=== PATIENT | female | born 1960 | race Caucasian/White ===

== ENCOUNTER → 2018-04-28 08:32 | Outpatient (CLI) | payer OTHER, SELFPAY ==
[2018-04-28 09:26] LABS: Alanine Aminotransferase 25 IU/L (9-52); Albumin Globulin Ratio 1.4 (1.0-2.8); Alkaline Phosphatase 49 U/L (38-126); Aspartate Aminotransferase 25 IU/L (14-36); BUN Creatinine Ratio 22.2 (6-22); Bilirubin Total 0.6 mg/dL (0.2-1.3); Blood Urea Nitrogen 20 mg/dL (7-17); Calcium 9.5 mg/dL (8.4-10.2); Carbon Dioxide 27 mmol/L (22-32); Chloride 105 mmol/L (98-107); Cholesterol 152 mg/dL (140-199); Estimated Glomerular Filt Rate > 60.0 mL/min (>60); Globulin 2.8 g/dL (1.7-4.1); Glucose 96 mg/dL (70-100); HDL Cholesterol 62 mg/dL (40-60); HEMOLYSIS < 15 (0-50); LDL Cholesterol Calculated 72 mg/dL (<100); Potassium 4.2 mmol/L (3.4-5.1); Sodium 142 mmol/L (137-145); Total Protein 6.8 g/dL (6.3-8.2); Triglycerides 91 mg/dL (35-150)
[2018-04-28 09:41] LABS: Add Manual Diff / Slide Review NO; Basophils Percent Auto 0.8 % (0-2); Eosinophils Percent Auto 3.7 % (2-4); Hematocrit 39.7 % (36-46); Hemoglobin 13.2 g/dL (12.0-16.0); Mean Corpuscular HGB Conc 33.1 % (30-36); Mean Corpuscular Hemoglobin 26.7 PG (26-34); Mean Corpuscular Volume 80.7 fL (80-100); Monocytes Percent Auto 9.3 % (3-14); Neutrophils Absolute Auto 3200 /uL (3000-5900); Neutrophils Percent Auto 59.2 % (50-75); Red Blood Cell Count 4.93 X10^6/uL (4.0-5.2); Red Cell Distribution Width 13.6 % (11.6-14.8); White Blood Cell Count 5.4 X10^3/uL (4.5-11.0)
[2018-04-28 09:57] LABS: TSH w/ Reflex to FT4 2.84 uIU/mL (0.47-4.68)
[2018-04-28 10:13] LABS: Platelet Count 162 X10^3/uL (150-400)
== END ==
PROVIDERS: Family Provider Family Medicine; PCP Family Medicine; Visit Provider Family Medicine
DX: Z00.00 Encounter for general adult medical examination without abnormal findings (principal); Z79.890 Hormone replacement therapy
CPT/HCPCS: 36415; 80053; 80061; 84443; 85025

== ENCOUNTER → 2018-07-06 15:14 | Outpatient (CLI) | payer OTHER, SELFPAY ==
--- NOTE | 2018-07-06 | DI.MG.S_ITS ---
BILATERAL DIGITAL SCREENING MAMMOGRAM 3D/2D WITH CAD: 07/06/2018 CLINICAL: Routine screening. Comparison is made to exams dated: 05/05/2017 mammogram, 02/19/2016 mammogram, and 02/02/2015 mammogram - [facility]. The tissue of both breasts is extremely dense, which lowers the sensitivity of mammography. Current study was also evaluated with a Computer Aided Detection (CAD) system. No significant masses, calcifications, or other findings are seen in either breast. There has been no significant interval change. IMPRESSION: NEGATIVE There is no mammographic evidence of malignancy. A 1 year screening mammogram is recommended. This exam was interpreted at Station ID: [id number]. NOTE: For mammograms, a report in lay terms will be sent to the patient. Approximately 15% of breast malignancies will not be visualized mammographically. In the management of a palpable breast mass, a negative mammogram must not discourage biopsy of a clinically suspicious lesion. Electronically Signed By: Vicky will/loy:07/06/2018 15:48:02 letter sent: Normal Exam ACR BI-RADS Category 1: Negative [id number]
[2018-07-06 17:32] LABS: Hep C Virus Ab w/Reflex Quant NEGATIVE s/c (NEGATIVE)
== END ==
PROVIDERS: PCP Family Medicine; Visit Provider Family Medicine
DX: Z12.31 Encounter for screening mammogram for malignant neoplasm of breast (principal); Z11.59 Encounter for screening for other viral diseases
CPT/HCPCS: 36415; 77063; 77067; 86803

== ENCOUNTER → 2019-07-05 14:37 | Outpatient (CLI) | payer OTHER, SELFPAY ==
--- NOTE | 2019-07-05 14:38 | DI.US.S_ITS ---
PROCEDURE: US RENAL COMPLETE INDICATIONS: MICROHEMATURIA TECHNIQUE: Real-time scanning was performed of the kidneys and bladder, with image documentation. COMPARISON: [facility] , US ABDOMEN, 12/11/2000, 14:36. [facility] , CT ABDOMEN/PELVIS WITH CONTRAST, 12/11/2000, 11:08. FINDINGS: Kidneys: Kidneys are normal in size. Right kidney measures 10.7 cm long; left kidney measures 10.1 cm long. Right renal cortical thickness is 1.0 cm; left renal cortical thickness is 1.0 cm. Renal cortical echotexture is normal. No hydronephrosis or nephrolithiasis. No suspicious solid mass lesions. Bladder: Pre-void bladder volume is 75 mL. Post-void residual is 0 mL. Pre-void images demonstrate no intraluminal masses or stones. On pre-void images, right ureteral jets are noted with color Doppler interrogation. (Of note, ureteral jets may not be detectable in up to 25% of cases due to insufficient differences in specific gravity between ureteral and bladder urine). Miscellaneous: No free pelvic fluid. IMPRESSION: Normal kidneys. Dictated by: Devante HALL Interpreted: Carlo Varner MD on 07/05/2019 at 15:40 Approved by: Carlo Varner M.D. on 07/05/2019 at 16:24
== END ==
PROVIDERS: PCP Family Medicine; Visit Provider Family Medicine
DX: M81.0 Age-related osteoporosis without current pathological fracture (principal); R31.29 Other microscopic hematuria; Z82.62 Family history of osteoporosis; Z78.0 Asymptomatic menopausal state
CPT/HCPCS: 76770; 77080

== ENCOUNTER → 2019-07-08 07:41 | Outpatient (CLI) | payer OTHER, SELFPAY ==
--- NOTE | 2019-07-08 07:42 | DI.MG.S_ITS ---
BILATERAL DIGITAL SCREENING MAMMOGRAM 3D/2D WITH CAD: 07/08/2019 CLINICAL: Routine screening. Comparison is made to exams dated: 07/06/2018 mammogram, 05/05/2017 mammogram, and 02/19/2016 mammogram - [facility]. The tissue of both breasts is extremely dense, which lowers the sensitivity of mammography. Current study was also evaluated with a Computer Aided Detection (CAD) system. No significant masses, calcifications, or other findings are seen in either breast. There has been no significant interval change. IMPRESSION: NEGATIVE There is no mammographic evidence of malignancy. A 1 year screening mammogram is recommended. This exam was interpreted at Station ID: [id number]. NOTE: For mammograms, a report in lay terms will be sent to the patient. Approximately 15% of breast malignancies will not be visualized mammographically. In the management of a palpable breast mass, a negative mammogram must not discourage biopsy of a clinically suspicious lesion. Electronically Signed By: Vicky will/loy:07/09/2019 08:43:15 letter sent: Normal Exam ACR BI-RADS Category 1: Negative [id number]
== END ==
PROVIDERS: PCP Family Medicine; Visit Provider Family Medicine
DX: Z12.31 Encounter for screening mammogram for malignant neoplasm of breast (principal)
CPT/HCPCS: 77063; 77067

== ENCOUNTER 2019-10-17 09:00 | Outpatient (RCR) | payer BC, OTHER, SELFPAY ==
--- NOTE | 2019-06-20 16:00 | PT.OIE ---
Current Diagnoses Low back pain (06/20/19) Other specified disorders of muscle (06/20/19) Pelvic and perineal pain (06/20/19) Past Medical History (Last Reviewed 05/03/18 @ 09:34 by Carolyn Connor LPN) Anxiety (Chronic ~1979) Asthma (Chronic ~1990) Bunion (Chronic ~2015) Cardiac arrhythmia (Chronic ~1992) Chicken pox (Resolved ~1975) Chronic back pain (Chronic ~2005) Chronic narrow angle glaucoma (Chronic) Chronic sinus infection (Chronic ~1989) Depression (Chronic ~1985) Dermoid cyst (Chronic ~1999) Disc herniation (Chronic ~2008) Gastric ulcer (Chronic) Hematuria (Chronic ~1999) Melasma (Chronic ~1989) Mumps (Resolved ~1964) Osteopenia (Chronic ~2011) Osteoporosis (Chronic ~2014) Post traumatic stress disorder (PTSD) (Chronic ~1986) Postmenopausal (Chronic ~2012) Recurrent sinusitis (Chronic ~1982) Rosacea (Chronic ~1999) Scoliosis (Chronic) Seasonal allergies (Chronic ~1964) Shingles (Resolved ~1990) Teratoma (Chronic ~1999) Wasp sting (Chronic) Past Surgical History (Last Reviewed 05/03/18 @ 09:34 by Carolyn Connor LPN) Anesthesia (Resolved) Bowel obstruction (Resolved ~03/2007) Foot pain (Chronic ~2003) History of tonsillectomy (~1990) Status post bilateral salpingo-oophorectomy (BSO) (~10/2000) Status post discectomy (~2006) Status post iridectomy (Resolved ~2015) Status post tubal ligation Visit Care Team Role Provider Type Judah Díaz MD Attending Provider Physician Primary Care Provider Specialty: [facility] Address: [address] [place] [address] Email: [email or web address] Physical Therapy Initial Evaluation PT-OP-A Visit Information Start: 06/20/19 15:22 Freq: Status: Active Protocol: Document 06/20/19 15:22 [facility] (Rec: 06/20/19 15:37 [facility] [id number]) Out-Patient Physical Therapy Visit Information Visit Information Visit Type Initial Evaluation Visit Note 58 year old female with pelvic pain, low back pain, painful intercourse and urinary leakage Visit Start Time 15:15 Visit Stop Time 16:00 Total Visit Minutes 45 Visit Number 1 Evaluation Information Evaluation Date 06/20/19 PT-OP-B Current Condition Start: 06/20/19 15:22 Freq: Status: Active Protocol: Document 06/20/19 15:22 [facility] (Rec: 06/20/19 15:37 [facility] [id number]) Current Condition History of Current Condition Onset Date symptoms began in November 2018 fo Current Complaints urgency and leakage, pelvic pain with intercourse, LBP History of Current Condition Barbara reports she started getting sacral pain after . Did alot of mountain biking and then began having pain with sit ups, down tog, standing on one foot for long. She feels like she isn't quite lined up right. Has to use her arms to push her up when rolling over. Hasn't been able to do her gym activities due to pain . She has had discomfort with intercourse but now it is painful and she often avoids it due to pain. She leaks with strong cough and sneeze and has a strong urgency to void. She has a history of disectomy L4-5 in 2006, ovary removal 2000. She has been on both oral estrogen and vaginal estrogen cream for 4-5 years. She also has a history of TMJ Treatment Goals Patient/Caregiver Goals To reduce pain, improve alignment of the pelvis, decrease incontinence Current Functional Impairments (Reported) Functional Limitations- ADL's pain with rolling over in bed Functional Limitations- Recreation/ pain limiting recreational Hobbies activities such as yoga, hiking, and biking PT-OP-C Subjective Start: 06/20/19 15:22 Freq: Status: Active Protocol: Document 06/20/19 16:00 [facility] (Rec: 06/22/19 10:49 [facility] [id number]) Patient Questionnaires Pelvic Pain and Urgency/Frequency Patient Symptom Scale Pelvic Pain Score 12.5 OP-PT Pain Assessment Pain Assessment Grid Paper Pain Assessment Grid Completed Yes Location left side sacrum Pain Location Details feels as if she is out of alignment Intensity 3 Scale Used Numeric (1 - 10) PT-OP-I Pelvic Floor Start: 06/20/19 15:22 Freq: Status: Active Protocol: Document 06/20/19 16:00 [facility] (Rec: 06/22/19 10:49 [facility] [id number]) Pelvic Floor Assessment Urine Pelvic Floor Surgery No Urinary Symptoms Urge Sensation,Incomplete Emptying Other Urinary Symptoms at times will feel like she needs to void again following urination. Leakage Size Medium Leakage Cause Exercise,Sneeze,Urge Leaks Per Day intermittent Voiding Frequency every 2 hours Nocturia 1-2 times Pelvic Clock Pelvic Clock 6-9 Guarding,Hypertonic Pelvic Clock 9-12 Guarding,Hypertonic Contraction Ability Voluntary Contraction Weak Voluntary Relaxation Weak Manual Muscle Testing Left 2 Manual Muscle Testing Right 2 Manual Muscle Testing Anterior 2 Manual Muscle Testing Posterior 2 Muscle Endurance (Seconds) 4 Comments Pelvic Floor Comments it is very difficult for Barbara to elicit a contraction due to hypertonicity of the lateral steel of her pelvic floor. Spams in the illiococcygeus bilaterally PT-OP-J Posture/Palpation/Skin Start: 06/20/19 15:22 Freq: Status: Active Protocol: Document 06/20/19 16:00 [facility] (Rec: 06/22/19 10:49 [facility] [email or web address]) Palpation Assessment Location left innominant Palpation Location left innominant inflare Palpation Findings Tenderness Palpation Details pain with provocative tests for the SI on the left with AP glide from the ASIS left sacral LUIZ Palpation Location left sacral LUIZ Palpation Findings Tenderness Palpation Details Left sacral LUIZ is shallow and Right sacral LUIZ is deep PT-OP-K Range of Motion Start: 06/22/19 10:49 Freq: Status: Active Protocol: Document 06/20/19 16:00 [facility] (Rec: 06/22/19 10:51 [facility] [email or web address]) Lumbar Spine Range of Motion Lumbar Spine Active Testing Position Standing Flexion 60 ROM Limitations Soft Tissue Tightness,Muscle Tone Comments pain with forward flexion in the left sacrum Hip Goniometric Range of Motion Hip Left Hip ROM WFL No Testing Position Supine Hip ROM Limitations Hip ROM Limitations Pain Comments pain with left hip ER in both standing and supine, pain is reproduced in the left sacral region PT-OP-Q Treatments Start: 06/20/19 15:22 Freq: Status: Active Protocol: Document 06/20/19 17:49 [facility] (Rec: 06/20/19 17:53 [facility] [email or web address]) Therapeutic Exercises Supine Exercises bent knee fall out left Side left Reps/Minutes x 10 reps Comments with cues to not let the right pelvis move happy baby stretch Reps/Minutes 1-2 reps hold 30 sec to 1 min Comments for pelvic floor relaxation supine adductor ball squeeze Supine Exercise Name supine adductor ball squeeze Side bilateral Reps/Minutes 10x 5 seconds Manual Therapy Treatment Manual Techniques 2 Type MET left inflare Body Position Supine 1 Type MET for sacral rotation left Body Position Sidelying Self-Care/Home Management Treatment Education Patient Education Pain Management,Posture Other Education education on sitting posture to decrease pelvic floor tightness PT-OP-T Assessment and Plan Start: 06/20/19 15:22 Freq: Status: Active Protocol: Document 06/20/19 16:00 [facility] (Rec: 06/22/19 10:49 [facility] [email or web address]) Physical Therapy Assessment Rehab Potential Rehabilitation Potential Excellent Evaluation Complexity Number of Personal Factors/Comorbidities 0 Number of Body Systems Impaired 1-2 Clinical Presentation at Evaluation Stable Impairments Impairments Activity Tolerance,Pain,Soft Tissue Mobility,Strength,Tone Goals Three Impairment Decreased strength and endurance of the pelvic floor due to high tone Short Term Goal (STG) Barbara is able to relax her pelvic floor to baseline in order to properly perform a pelvic floor contraction. STG Duration 4 weeks [facility] Goal (LTG) Barbara is able to improve the function of her pelvic floor to reduce symptoms of urinary incontinence and leakage. LTG Duration 8 weeks Two Impairment hypertonicity of the pelvic floor muscles and pain with intercourse Short Term Goal (STG) Barbara is educated on relaxed awareness of the pelvic floor and is given a home stretching and yoga for pelvic pain program STG Duration 4 weeks [facility]iary Goal (LTG) Barbara is able to return to intercourse with overall reduced pain levels LTG Duration 8 weeks One Impairment sacral torsion and sacral pain left Short Term Goal (STG) With manual therapy techniques Barbara no longer has complaints of pain along the sacral LUIZ on the left and she is able to roll in bed without pain STG Duration 4 weeks Staff Pharmacist Goal (LTG) Barbara is able to rotate her left leg into full ER and IR without sacral pain LTG Duration 8 weeks Assessment Summary Assessment Barbara presents to Physical therapy today with signs and symptoms of pelvic floor hypertonicity and sacral torsion creating both pelvic pain with intercourse and LBP. Barbara reports she has always had discomfort with intercourse but her symptoms increased when she began experiencing sacral pain following a week of mountain biking and outdoor activity in November 2018. 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 With internal examination of the pelvic floor she has guarding of the illiococcygeus L >R and difficulty even dena her pelvic floor due to hypertonicity. Treatment today began with manual technique to correct the sacral torsion, she was given stretches for the pelvic floor as well as SI bracing exercises. Treatment will include EMG biofeedback for relaxed awareness of the pelvic floor, yoga positions and stretches specifically for the pelvic floor and bladder retraining for urgency. Physical Therapy Plan Frequency and Duration Frequency of Treatment 1x/Week Duration of Treatment 8 Plan of Care Start Date 06/20/19 Plan of Care End Date 08/15/19 Therapeutic Interventions Therapeutic Interventions Home Exercise Program,Joint Mobilizations,Manual Therapy, Neuromuscular Re-education, Patient/Caregiver Education, Self-Care/Home Management,Soft Tissue Mobilization, Therapeutic Exercises Modalities Biofeedback,Electric Stimulation Next Visit Focus/Plan Next Note Type Treatment Note Next Visit Plan Begin with EMG biofeedback next visit and training on relaxing the pelvic floor with stretches
--- NOTE | 2019-06-22 10:55 | PT.OPPOC ---
Current Diagnoses Low back pain (06/20/19) Other specified disorders of muscle (06/20/19) Pelvic and perineal pain (06/20/19) Visit Care Team Role Provider Type Judah Díaz MD Attending Provider Physician Primary Care Provider Specialty: [facility] Address: [address] [place] [address], [id number] Email: [email or web address] Plan Of Care PT-OP-T Assessment and Plan Start: 06/20/19 15:22 Freq: Status: Active Protocol: Document 06/20/19 16:00 [facility] (Rec: 06/22/19 10:49 [facility] [email or web address]) Physical Therapy Assessment Rehab Potential Rehabilitation Potential Excellent Evaluation Complexity Number of Personal Factors/Comorbidities 0 Number of Body Systems Impaired 1-2 Clinical Presentation at Evaluation Stable Impairments Impairments Activity Tolerance,Pain,Soft Tissue Mobility,Strength,Tone Goals Three Impairment Decreased strength and endurance of the pelvic floor due to high tone Short Term Goal (STG) Barbara is able to relax her pelvic floor to baseline in order to properly perform a pelvic floor contraction. STG Duration 4 weeks [facility] Goal (LTG) Barbara is able to improve the function of her pelvic floor to reduce symptoms of urinary incontinence and leakage. LTG Duration 8 weeks Two Impairment hypertonicity of the pelvic floor muscles and pain with intercourse Short Term Goal (STG) Barbara is educated on relaxed awareness of the pelvic floor and is given a home stretching and yoga for pelvic pain program STG Duration 4 weeks [facility] Goal (LTG) Barbara is able to return to intercourse with overall reduced pain levels LTG Duration 8 weeks One Impairment sacral torsion and sacral pain left Short Term Goal (STG) With manual therapy techniques Barbara no longer has complaints of pain along the sacral LUIZ on the left and she is able to roll in bed without pain STG Duration 4 weeks [employer] Goal (LTG) Barbara is able to rotate her left leg into full ER and IR without sacral pain LTG Duration 8 weeks Assessment Summary Assessment Barbara presents to Physical therapy today with signs and symptoms of pelvic floor hypertonicity and sacral torsion creating both pelvic pain with intercourse and LBP. Barbara reports she has always had discomfort with intercourse but her symptoms increased when she began experiencing sacral pain following a week of mountain biking and outdoor activity in November 2018. 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 With internal examination of the pelvic floor she has guarding of the illiococcygeus L >R and difficulty even dena her pelvic floor due to hypertonicity. Treatment today began with manual technique to correct the sacral torsion, she was given stretches for the pelvic floor as well as SI bracing exercises. Treatment will include EMG biofeedback for relaxed awareness of the pelvic floor, yoga positions and stretches specifically for the pelvic floor and bladder retraining for urgency. Physical Therapy Plan Frequency and Duration Frequency of Treatment 1x/Week Duration of Treatment 8 Plan of Care Start Date 06/20/19 Plan of Care End Date 08/15/19 Therapeutic Interventions Therapeutic Interventions Home Exercise Program,Joint Mobilizations,Manual Therapy, Neuromuscular Re-education, Patient/Caregiver Education, Self-Care/Home Management,Soft Tissue Mobilization, Therapeutic Exercises Modalities Biofeedback,Electric Stimulation Next Visit Focus/Plan Next Note Type Treatment Note Next Visit Plan Begin with EMG biofeedback next visit and training on relaxing the pelvic floor with stretches Plan of Care Dates Plan of Care Start Date 06/20/19 Plan of Care End Date 08/15/19
--- NOTE | 2019-07-04 21:25 | PT.OTN ---
Current Diagnoses Low back pain (07/04/19) Other specified disorders of muscle (07/04/19) Pelvic and perineal pain (07/04/19) Physical Therapy Treatment Note PT-OP-A Visit Information Start: 06/20/19 15:22 Freq: Status: Active Protocol: Document 07/04/19 09:01 [facility] (Rec: 07/04/19 09:06 [facility] [id number]) Out-Patient Physical Therapy Visit Information Visit Information Visit Type Treatment Note Visit Start Time 09:00 Visit Stop Time 09:45 Total Visit Minutes 45 Visit Number 2 PT-OP-B Current Condition Start: 06/20/19 15:22 Freq: Status: Active Protocol: Document 06/20/19 15:22 [facility] (Rec: 06/20/19 15:37 [facility] [id number]) Current Condition History of Current Condition Onset Date symptoms began in November 2018 fo Current Complaints urgency and leakage, pelvic pain with intercourse, LBP History of Current Condition Barbara reports she started getting sacral pain after . Did alot of mountain biking and then began having pain with sit ups, down tog, standing on one foot for long. She feels like she isn't quite lined up right. Has to use her arms to push her up when rolling over. Hasn't been able to do her gym activities due to pain . She has had discomfort with intercourse but now it is painful and she often avoids it due to pain. She leakds with strong cough and sneeze and has a strong urgency to void. SHe has a history of discectomy L4-5 in 2006, ovary removal 2000. She has been on both oral estrogen and vaginal estrogen cream for 4-5 years. She also has a history of TMJ Treatment Goals Patient/Caregiver Goals To reduce pain, improve alignment of the pelvis, decrease incontinence Current Functional Impairments (Reported) Functional Limitations- ADL's pain with rolling over in bed Functional Limitations- Recreation/ pain limiting recreational Hobbies activities such as yoga, hiking, and biking PT-OP-C Subjective Start: 06/20/19 15:22 Freq: Status: Active Protocol: Document 07/04/19 09:01 [facility] (Rec: 07/04/19 09:06 [facility] [id number]) OP-PT Subjective Patient Comments Patient Comments felt a lot of pain after last visit in the sacrum. Feels like she has more motion now in her left hip now and can get in and out of the car better. Some numbness in her big toes R > L and then symptoms subsides. PT-OP-I Pelvic Floor Start: 06/20/19 15:22 Freq: Status: Active Protocol: Document 06/20/19 16:00 [facility] (Rec: 06/22/19 10:49 [facility] [email or web address]) Pelvic Floor Assessment Urine Pelvic Floor Surgery No Urinary Symptoms Urge Sensation,Incomplete Emptying Other Urinary Symptoms at times will feel like she needs to void again following urination. Leakage Size Medium Leakage Cause Exercise,Sneeze,Urge Leaks Per Day intermittent Voiding Frequency every 2 hours Nocturia 1-2 times Pelvic Clock Pelvic Clock 6-9 Guarding,Hypertonic Pelvic Clock 9-12 Guarding,Hypertonic Contraction Ability Voluntary Contraction Weak Voluntary Relaxation Weak Manual Muscle Testing Left 2 Manual Muscle Testing Right 2 Manual Muscle Testing Anterior 2 Manual Muscle Testing Posterior 2 Muscle Endurance (Seconds) 4 Comments Pelvic Floor Comments it is very difficult for Barbara to elicit a contraction due to hypertonicity of the lateral steel of her pelvic floor. Spams in the illiococcygeus bilaterally PT-OP-J Posture/Palpation/Skin Start: 06/20/19 15:22 Freq: Status: Active Protocol: Document 06/20/19 16:00 [facility] (Rec: 06/22/19 10:49 [facility] [id number]) Palpation Assessment Location left innominant Palpation Location left innominant inflare Palpation Findings Tenderness Palpation Details pain with provocative tests for the SI on the left with AP glide from the ASIS left sacral LUIZ Palpation Location left sacral LUIZ Palpation Findings Tenderness Palpation Details LEft sacral LUIZ is shallow and Right sacral LUIZ is deep PT-OP-K Range of Motion Start: 06/22/19 10:49 Freq: Status: Active Protocol: Document 06/20/19 16:00 [facility] (Rec: 06/22/19 10:51 [facility] [email or web address]) Lumbar Spine Range of Motion Lumbar Spine Active Testing Position Standing Flexion 60 ROM Limitations Soft Tissue Tightness,Muscle Tone Comments pain with forward flexion in the left sacrum Hip Goniometric Range of Motion Hip Left Hip ROM WFL No Testing Position Supine Hip ROM Limitations Hip ROM Limitations Pain Comments pain with left hip ER in both standing and supine, pain is reproduced in the left sacral region PT-OP-Q Treatments Start: 06/20/19 15:22 Freq: Status: Active Protocol: Document 07/04/19 21:14 [facility] (Rec: 07/07/19 21:25 [facility] [id number]) Therapeutic Exercises Supine Exercises 1 Supine Exercise Name diaphragmatic breathing for relaxation piriformis stretch Supine Exercise Name piriformis stretch Reps/Minutes hold 1-2 min happy baby stretch Supine Exercise Name worked on happy baby against the wall Reps/Minutes 1-2 reps hold 30 sec to 1 min Comments for pelvic floor relaxation Prone Exercises 1 Prone Exercise Name prone hip IR/ER without pelvis movement Reps/Minutes x 10 reps Other Exercises 1 Other Exercise Name karlos pose Manual Therapy Treatment Manual Techniques 4 Type manual piriformis stretch Comments in prone 3 Type left LUIZ PA glides Neuro Re-Education Treatment Other Activities 1 Details EMG biofeedback with downtraining to relax the pelvic floor Comments elevated resting tone, aveage of 11.9 with max of 25.7 gave 5 second hold time with 10-15 sec PT-OP-T Assessment and Plan Start: 06/20/19 15:22 Freq: Status: Active Protocol: Document 07/04/19 21:14 [facility] (Rec: 07/07/19 21:25 [facility] [id number]) Physical Therapy Assessment Assessment Summary Assessment Elevated resting tone but this did not worsen with treatment . Gave 5 second hold time for home. Pt to work on breathing techniques and stretches for the pelvic floor . Sarum still deep on the right side today but improve hip ROM Physical Therapy Plan Next Visit Focus/Plan Next Note Type Treatment Note Next Visit Plan continue with manual therapy techniques for the sacrum and pelvic floor relaxed awareness
--- NOTE | 2019-07-11 12:07 | PT.OTN ---
Current Diagnoses Low back pain (07/11/19) Other specified disorders of muscle (07/11/19) Pelvic and perineal pain (07/11/19) Physical Therapy Treatment Note PT-OP-A Visit Information Start: 06/20/19 15:22 Freq: Status: Active Protocol: Document 07/11/19 12:00 [facility] (Rec: 07/11/19 12:07 [facility] [id number]) Out-Patient Physical Therapy Visit Information Visit Information Visit Type Treatment Note Visit Start Time 09:00 Visit Stop Time 09:45 Total Visit Minutes 45 Visit Number 3 PT-OP-B Current Condition Start: 06/20/19 15:22 Freq: Status: Active Protocol: Document 06/20/19 15:22 [facility] (Rec: 06/20/19 15:37 [facility] [id number]) Current Condition History of Current Condition Onset Date symptoms began in November 2018 fo Current Complaints urgency and leakage, pelvic pain with intercourse, LBP History of Current Condition Barbara reports she started getting sacral pain after weekend. Did alot of mountain biking and then began having pain with sit ups, down tog, standing on one foot for long. She feels like she isn't quite lined up right. Has to use her arms to push her up when rolling over. Hasn't been able to do her gym activities due to pain . She has had discomfort with intercourse but now it is painful and she often avoids it due to pain. She leakds with strong cough and sneeze and has a strong urgency to void. SHe has a history of discectomy L4-5 in 2006, ovary removal 2000. She has been on both oral estrogen and vaginal estrogen cream for 4-5 years. She also has a history of TMJ Treatment Goals Patient/Caregiver Goals To reduce pain, improve alignment of the pelvis, decrease incontinence Current Functional Impairments (Reported) Functional Limitations- ADL's pain with rolling over in bed Functional Limitations- Recreation/ pain limiting recreational Hobbies activities such as yoga, hiking, and biking PT-OP-C Subjective Start: 06/20/19 15:22 Freq: Status: Active Protocol: Document 07/11/19 12:00 [facility] (Rec: 07/11/19 12:07 [facility] [id number]) OP-PT Subjective Patient Comments Patient Comments pt reports she has been doing better during the day but finds her self waking up at night in pain in her sacrum. She lays on her right side and doesn't move much PT-OP-I Pelvic Floor Start: 06/20/19 15:22 Freq: Status: Active Protocol: Document 06/20/19 16:00 [facility] (Rec: 06/22/19 10:49 [facility] [id number]) Pelvic Floor Assessment Urine Pelvic Floor Surgery No Urinary Symptoms Urge Sensation,Incomplete Emptying Other Urinary Symptoms at times will feel like she needs to void again following urination. Leakage Size Medium Leakage Cause Exercise,Sneeze,Urge Leaks Per Day intermittent Voiding Frequency every 2 hours Nocturia 1-2 times Pelvic Clock Pelvic Clock 6-9 Guarding,Hypertonic Pelvic Clock 9-12 Guarding,Hypertonic Contraction Ability Voluntary Contraction Weak Voluntary Relaxation Weak Manual Muscle Testing Left 2 Manual Muscle Testing Right 2 Manual Muscle Testing Anterior 2 Manual Muscle Testing Posterior 2 Muscle Endurance (Seconds) 4 Comments Pelvic Floor Comments it is very difficult for Barbara to elicit a contraction due to hypertonicity of the lateral steel of her pelvic floor. Spams in the illiococcygeus bilaterally PT-OP-J Posture/Palpation/Skin Start: 06/20/19 15:22 Freq: Status: Active Protocol: Document 06/20/19 16:00 [facility] (Rec: 06/22/19 10:49 [facility] [id number]) Palpation Assessment Location left innominant Palpation Location left innominant inflare Palpation Findings Tenderness Palpation Details pain with provocative tests for the SI on the left with AP glide from the ASIS left sacral LUIZ Palpation Location left sacral LUIZ Palpation Findings Tenderness Palpation Details LEft sacral LUIZ is shallow and Right sacral LUIZ is deep PT-OP-K Range of Motion Start: 06/22/19 10:49 Freq: Status: Active Protocol: Document 06/20/19 16:00 [facility] (Rec: 06/22/19 10:51 [facility] [id number]) Lumbar Spine Range of Motion Lumbar Spine Active Testing Position Standing Flexion 60 ROM Limitations Soft Tissue Tightness,Muscle Tone Comments pain with forward flexion in the left sacrum Hip Goniometric Range of Motion Hip Left Hip ROM WFL No Testing Position Supine Hip ROM Limitations Hip ROM Limitations Pain Comments pain with left hip ER in both standing and supine, pain is reproduced in the left sacral region PT-OP-Q Treatments Start: 06/20/19 15:22 Freq: Status: Active Protocol: Document 07/11/19 12:00 [facility] (Rec: 07/11/19 12:07 [facility] [id number]) Therapeutic Exercises Supine Exercises 3 Supine Exercise Name pelvic floor long holds 10 seconds on 10 seconds off Comments decreased resting tone today 2 Supine Exercise Name TA stabilization with marches 1 Supine Exercise Name diaphragmatic breathing for relaxation supine adductor ball squeeze Supine Exercise Name supine adductor ball squeeze Side bilateral Reps/Minutes 10x 5 seconds Manual Therapy Treatment Soft Tissue Mobilization 1 Body Location left sided piriformis release Body Position Prone Joint Mobilizations 1 Joint posterior joint capsule mobilizations in hip flexion Grade II Body Position Hooklying Manual Techniques 4 Type manual piriformis stretch Comments in prone 3 Type left LUIZ PA michael PT-OP-T Assessment and Plan Start: 06/20/19 15:22 Freq: Status: Active Protocol: Document 07/11/19 12:00 [facility] (Rec: 07/11/19 12:07 [facility] [id number]) Physical Therapy Assessment Goals Three Impairment Decreased strength and endurance of the pelvic floor due to high tone Short Term Goal (STG) Barbara is able to relax her pelvic floor to baseline in order to properly perform a pelvic floor contraction. STG Duration 4 weeks Dampener Operator Goal (LTG) Barbara is able to improve the function of her pelvic floor to reduce symptoms of urinary incontinence and leakage. LTG Duration 8 weeks Two Impairment hypertonicity of the pelvic floor muscles and pain with intercourse Short Term Goal (STG) Barbara is educated on relaxed awareness of the pelvic floor and is given a home stretching and yoga for pelvic pain program STG Duration 4 weeks Dampener Operator Goal (LTG) Barbara is able to return to intercourse with overall reduced pain levels LTG Duration 8 weeks One Impairment sacral torsion and sacral pain left Short Term Goal (STG) With manual therapy techniques Barbara no longer has complaints of pain along the sacral LUIZ on the left and she is able to roll in bed without pain STG Duration 4 weeks Skilled Nursing Goal (LTG) Barbara is able to rotate her left leg into full ER and IR without sacral pain LTG Duration 8 weeks Assessment Summary Assessment Decreased resting tone and Barbara was able to stick with 10 second hold time. SHe does better with pelvic floor opening visualization than the breath work. Physical Therapy Plan Frequency and Duration Frequency of Treatment 1x/Week Duration of Treatment 8 Plan of Care Start Date 06/20/19 Plan of Care End Date 08/15/19 Next Visit Focus/Plan Next Note Type Treatment Note Next Visit Plan continue with manual therapy techniques for the sacrum and pelvic floor relaxed awareness
--- NOTE | 2019-07-18 11:57 | PT.OTN ---
Current Diagnoses Low back pain (07/18/19) Other specified disorders of muscle (07/18/19) Pelvic and perineal pain (07/18/19) Physical Therapy Treatment Note PT-OP-A Visit Information Start: 06/20/19 15:22 Freq: Status: Active Protocol: Document 07/18/19 11:52 [facility] (Rec: 07/18/19 11:56 [facility] [id number]) Out-Patient Physical Therapy Visit Information Visit Information Visit Type Treatment Note Visit Start Time 09:00 Visit Stop Time 09:45 Total Visit Minutes 45 Visit Number 4 PT-OP-B Current Condition Start: 06/20/19 15:22 Freq: Status: Active Protocol: Document 06/20/19 15:22 [facility] (Rec: 06/20/19 15:37 [facility] [id number]) Current Condition History of Current Condition Onset Date symptoms began in November 2018 fo Current Complaints urgency and leakage, pelvic pain with intercourse, LBP History of Current Condition Barbara reports she started getting sacral pain after . Did alot of mountain biking and then began having pain with sit ups, down tog, standing on one foot for long. She feels like she isn't quite lined up right. Has to use her arms to push her up when rolling over. Hasn't been able to do her gym activities due to pain . She has had discomfort with intercourse but now it is painful and she often avoids it due to pain. She leakds with strong cough and sneeze and has a strong urgency to void. SHe has a history of discectomy L4-5 in 2006, ovary removal 2000. She has been on both oral estrogen and vaginal estrogen cream for 4-5 years. She also has a history of TMJ Treatment Goals Patient/Caregiver Goals To reduce pain, improve alignment of the pelvis, decrease incontinence Current Functional Impairments (Reported) Functional Limitations- ADL's pain with rolling over in bed Functional Limitations- Recreation/ pain limiting recreational Hobbies activities such as yoga, hiking, and biking PT-OP-C Subjective Start: 06/20/19 15:22 Freq: Status: Active Protocol: Document 07/18/19 11:52 [facility] (Rec: 07/18/19 11:56 [facility] [email or web address]) OP-PT Subjective Patient Comments Patient Comments pt reports her sacrum is doing better and she only woke up 1 xm in pain this week. She feels like she has been doing her pelvic floor stretches but is still super tight int he opening of her pelvic floor. PT-OP-I Pelvic Floor Start: 06/20/19 15:22 Freq: Status: Active Protocol: Document 06/20/19 16:00 [facility] (Rec: 06/22/19 10:49 [facility] [email or web address]) Pelvic Floor Assessment Urine Pelvic Floor Surgery No Urinary Symptoms Urge Sensation,Incomplete Emptying Other Urinary Symptoms at times will feel like she needs to void again following urination. Leakage Size Medium Leakage Cause Exercise,Sneeze,Urge Leaks Per Day intermittent Voiding Frequency every 2 hours Nocturia 1-2 times Pelvic Clock Pelvic Clock 6-9 Guarding,Hypertonic Pelvic Clock 9-12 Guarding,Hypertonic Contraction Ability Voluntary Contraction Weak Voluntary Relaxation Weak Manual Muscle Testing Left 2 Manual Muscle Testing Right 2 Manual Muscle Testing Anterior 2 Manual Muscle Testing Posterior 2 Muscle Endurance (Seconds) 4 Comments Pelvic Floor Comments it is very difficult for Barbara to elicit a contraction due to hypertonicity of the lateral steel of her pelvic floor. Spams in the illiococcygeus bilaterally PT-OP-J Posture/Palpation/Skin Start: 06/20/19 15:22 Freq: Status: Active Protocol: Document 06/20/19 16:00 [facility] (Rec: 06/22/19 10:49 [facility] [id number]) Palpation Assessment Location left innominant Palpation Location left innominant inflare Palpation Findings Tenderness Palpation Details pain with provocative tests for the SI on the left with AP glide from the ASIS left sacral LUIZ Palpation Location left sacral LUIZ Palpation Findings Tenderness Palpation Details LEft sacral LUIZ is shallow and Right sacral LUIZ is deep PT-OP-K Range of Motion Start: 06/22/19 10:49 Freq: Status: Active Protocol: Document 06/20/19 16:00 [facility] (Rec: 06/22/19 10:51 [facility] [id number]) Lumbar Spine Range of Motion Lumbar Spine Active Testing Position Standing Flexion 60 ROM Limitations Soft Tissue Tightness,Muscle Tone Comments pain with forward flexion in the left sacrum Hip Goniometric Range of Motion Hip Left Hip ROM WFL No Testing Position Supine Hip ROM Limitations Hip ROM Limitations Pain Comments pain with left hip ER in both standing and supine, pain is reproduced in the left sacral region PT-OP-Q Treatments Start: 06/20/19 15:22 Freq: Status: Active Protocol: Document 07/18/19 11:52 [facility] (Rec: 07/18/19 11:56 [facility] [email or web address]) Therapeutic Exercises Supine Exercises 3 Supine Exercise Name pelvic floor long holds 10 seconds on 10 seconds off Comments decreased resting tone today Sidelying Exercises clam shells Sidelying Exercise Name sidelying clam shells Reps/Minutes 2 x 10 reps Manual Therapy Treatment Soft Tissue Mobilization 1 Body Location left sided piriformis release Body Position Prone Manual Techniques 4 Type manual piriformis stretch Comments in prone 3 Type left LUIZ PA glides Self-Care/Home Management Treatment Education Patient Education Home Exercise Program Other Education pt given a size medium dilator to work on stretching x 10 minutes per day/working up to 10 minutes per day tolerance PT-OP-T Assessment and Plan Start: 06/20/19 15:22 Freq: Status: Active Protocol: Document 07/18/19 11:52 [facility] (Rec: 07/18/19 11:56 [facility] [email or web address]) Physical Therapy Assessment Assessment Summary Assessment we didn't go through stretches today and her resting tone was higher. We talked about continuing the stretches and also trying the dilator. Improve position of the sacrum with decreased pirifromis tightness Physical Therapy Plan Next Visit Focus/Plan Next Note Type Treatment Note Next Visit Plan continue with manual therapy techniques for the sacrum and pelvic floor relaxed awareness . Assess dilator tolerance next visit
--- NOTE | 2019-08-01 13:25 | PT.OTN ---
Current Diagnoses Low back pain (08/01/19) Other specified disorders of muscle (08/01/19) Pelvic and perineal pain (08/01/19) Physical Therapy Treatment Note PT-OP-A Visit Information Start: 06/20/19 15:22 Freq: Status: Active Protocol: Document 08/01/19 09:09 [facility] (Rec: 08/01/19 11:26 [facility] [id number]) Out-Patient Physical Therapy Visit Information Visit Information Visit Type Treatment Note Visit Start Time 09:15 Visit Stop Time 09:55 Total Visit Minutes 40 Visit Number 5 PT-OP-B Current Condition Start: 06/20/19 15:22 Freq: Status: Active Protocol: Document 06/20/19 15:22 [facility] (Rec: 06/20/19 15:37 [facility] [id number]) Current Condition History of Current Condition Onset Date symptoms began in November 2018 fo Current Complaints urgency and leakage, pelvic pain with intercourse, LBP History of Current Condition Barbara reports she started getting sacral pain after . Did alot of mountain biking and then began having pain with sit ups, down tog, standing on one foot for long. She feels like she isn't quite lined up right. Has to use her arms to push her up when rolling over. Hasn't been able to do her gym activities due to pain . She has had discomfort with intercourse but now it is painful and she often avoids it due to pain. She leakds with strong cough and sneeze and has a strong urgency to void. SHe has a history of discectomy L4-5 in 2006, ovary removal 2000. She has been on both oral estrogen and vaginal estrogen cream for 4-5 years. She also has a history of TMJ Treatment Goals Patient/Caregiver Goals To reduce pain, improve alignment of the pelvis, decrease incontinence Current Functional Impairments (Reported) Functional Limitations- ADL's pain with rolling over in bed Functional Limitations- Recreation/ pain limiting recreational Hobbies activities such as yoga, hiking, and biking PT-OP-C Subjective Start: 06/20/19 15:22 Freq: Status: Active Protocol: Document 08/01/19 09:09 [facility] (Rec: 08/01/19 11:26 [facility] [id number]) OP-PT Subjective Patient Comments Patient Comments cross country sking x 15 miles aggravated her sacrum snow shoeing was okay. She did try using the dilator and was sore in her sacrum following. PT-OP-I Pelvic Floor Start: 06/20/19 15:22 Freq: Status: Active Protocol: Document 06/20/19 16:00 [facility] (Rec: 06/22/19 10:49 [facility] [email or web address]) Pelvic Floor Assessment Urine Pelvic Floor Surgery No Urinary Symptoms Urge Sensation,Incomplete Emptying Other Urinary Symptoms at times will feel like she needs to void again following urination. Leakage Size Medium Leakage Cause Exercise,Sneeze,Urge Leaks Per Day intermittent Voiding Frequency every 2 hours Nocturia 1-2 times Pelvic Clock Pelvic Clock 6-9 Guarding,Hypertonic Pelvic Clock 9-12 Guarding,Hypertonic Contraction Ability Voluntary Contraction Weak Voluntary Relaxation Weak Manual Muscle Testing Left 2 Manual Muscle Testing Right 2 Manual Muscle Testing Anterior 2 Manual Muscle Testing Posterior 2 Muscle Endurance (Seconds) 4 Comments Pelvic Floor Comments it is very difficult for Barbara to elicit a contraction due to hypertonicity of the lateral steel of her pelvic floor. Spams in the illiococcygeus bilaterally PT-OP-J Posture/Palpation/Skin Start: 06/20/19 15:22 Freq: Status: Active Protocol: Document 06/20/19 16:00 [facility] (Rec: 06/22/19 10:49 [facility] [email or web address]) Palpation Assessment Location left innominant Palpation Location left innominant inflare Palpation Findings Tenderness Palpation Details pain with provocative tests for the SI on the left with AP glide from the ASIS left sacral LUIZ Palpation Location left sacral LUIZ Palpation Findings Tenderness Palpation Details LEft sacral LUIZ is shallow and Right sacral LUIZ is deep PT-OP-K Range of Motion Start: 06/22/19 10:49 Freq: Status: Active Protocol: Document 06/20/19 16:00 [facility] (Rec: 06/22/19 10:51 [facility] [email or web address]) Lumbar Spine Range of Motion Lumbar Spine Active Testing Position Standing Flexion 60 ROM Limitations Soft Tissue Tightness,Muscle Tone Comments pain with forward flexion in the left sacrum Hip Goniometric Range of Motion Hip Left Hip ROM WFL No Testing Position Supine Hip ROM Limitations Hip ROM Limitations Pain Comments pain with left hip ER in both standing and supine, pain is reproduced in the left sacral region PT-OP-Q Treatments Start: 06/20/19 15:22 Freq: Status: Active Protocol: Document 08/01/19 13:16 [facility] (Rec: 08/01/19 13:25 [facility] [id number]) Therapeutic Exercises Supine Exercises piriformis stretch Supine Exercise Name piriformis stretch Reps/Minutes hold 1-2 min supine adductor ball squeeze Supine Exercise Name manual resistance following MET Reps/Minutes x 5 reps Other Exercises 2 Other Exercise Name cat cow, sidebends, rotation Comments x 10 each 1 Other Exercise Name karlos pose Manual Therapy Treatment Soft Tissue Mobilization 1 Body Location left sided piriformis release Body Position Prone Manual Techniques 4 Type manual piriformis stretch Comments in prone 2 Type MET left posterior rotation Body Position Supine Reps/Duration x 5 reps 1 Type MET for sacral counter nutation PT-OP-T Assessment and Plan Start: 06/20/19 15:22 Freq: Status: Active Protocol: Document 08/01/19 13:16 [facility] (Rec: 08/01/19 13:25 [facility] [email or web address]) Physical Therapy Assessment Assessment Summary Assessment tender left posterior gluteal region and piriformis. Pt was shown self release with ball and worked on lumbar segmental motion. Physical Therapy Plan Frequency and Duration Frequency of Treatment 1x/Week Duration of Treatment 8 Plan of Care Start Date 06/20/19 Plan of Care End Date 08/15/19 Therapeutic Interventions Therapeutic Interventions Home Exercise Program,Joint Mobilizations,Manual Therapy, Neuromuscular Re-education, Patient/Caregiver Education, Self-Care/Home Management,Soft Tissue Mobilization, Therapeutic Exercises Modalities Biofeedback,Electric Stimulation Next Visit Focus/Plan Next Note Type Treatment Note Next Visit Plan continue with manual therapy techniques for the sacrum and pelvic floor relaxed awareness . Review cat cow , sidebends, rotation next visit along with TA stabilization and pelvic floor
--- NOTE | 2019-08-15 11:27 | PT.OTN ---
Current Diagnoses Low back pain (08/15/19) Other specified disorders of muscle (08/15/19) Pelvic and perineal pain (08/15/19) Physical Therapy Treatment Note PT-OP-A Visit Information Start: 06/20/19 15:22 Freq: Status: Active Protocol: Document 08/08/19 09:00 [facility] (Rec: 08/15/19 11:27 [facility] [id number]) Out-Patient Physical Therapy Visit Information Visit Information Visit Type Treatment Note Visit Start Time 09:00 Visit Stop Time 09:45 Total Visit Minutes 45 Visit Number 6 PT-OP-B Current Condition Start: 06/20/19 15:22 Freq: Status: Active Protocol: Document 06/20/19 15:22 [facility] (Rec: 06/20/19 15:37 [facility] [id number]) Current Condition History of Current Condition Onset Date symptoms began in November 2018 fo Current Complaints urgency and leakage, pelvic pain with intercourse, LBP History of Current Condition Barbara reports she started getting sacral pain after . Did alot of mountain biking and then began having pain with sit ups, down tog, standing on one foot for long. She feels like she isn't quite lined up right. Has to use her arms to push her up when rolling over. Hasn't been able to do her gym activities due to pain . She has had discomfort with intercourse but now it is painful and she often avoids it due to pain. She leakds with strong cough and sneeze and has a strong urgency to void. SHe has a history of discectomy L4-5 in 2006, ovary removal 2000. She has been on both oral estrogen and vaginal estrogen cream for 4-5 years. She also has a history of TMJ Treatment Goals Patient/Caregiver Goals To reduce pain, improve alignment of the pelvis, decrease incontinence Current Functional Impairments (Reported) Functional Limitations- ADL's pain with rolling over in bed Functional Limitations- Recreation/ pain limiting recreational Hobbies activities such as yoga, hiking, and biking PT-OP-C Subjective Start: 06/20/19 15:22 Freq: Status: Active Protocol: Document 08/08/19 09:01 [facility] (Rec: 08/08/19 09:06 [facility] [id number]) OP-PT Subjective Patient Comments Patient Comments The thoracic rotation exercise bothers her neck a little bit , also one of the stretches may be aggravating her tailbone. It is always better in the am after she walks. Has had a cough and the leakage hasn't been as bad , has been using the dilator Patient Reported Progress Same PT-OP-I Pelvic Floor Start: 06/20/19 15:22 Freq: Status: Active Protocol: Document 06/20/19 16:00 [facility] (Rec: 06/22/19 10:49 [facility] [id number]) Pelvic Floor Assessment Urine Pelvic Floor Surgery No Urinary Symptoms Urge Sensation,Incomplete Emptying Other Urinary Symptoms at times will feel like she needs to void again following urination. Leakage Size Medium Leakage Cause Exercise,Sneeze,Urge Leaks Per Day intermittent Voiding Frequency every 2 hours Nocturia 1-2 times Pelvic Clock Pelvic Clock 6-9 Guarding,Hypertonic Pelvic Clock 9-12 Guarding,Hypertonic Contraction Ability Voluntary Contraction Weak Voluntary Relaxation Weak Manual Muscle Testing Left 2 Manual Muscle Testing Right 2 Manual Muscle Testing Anterior 2 Manual Muscle Testing Posterior 2 Muscle Endurance (Seconds) 4 Comments Pelvic Floor Comments it is very difficult for Barbara to elicit a contraction due to hypertonicity of the lateral steel of her pelvic floor. Spams in the illiococcygeus bilaterally PT-OP-J Posture/Palpation/Skin Start: 06/20/19 15:22 Freq: Status: Active Protocol: Document 06/20/19 16:00 [facility] (Rec: 06/22/19 10:49 [facility] [email or web address]) Palpation Assessment Location left innominant Palpation Location left innominant inflare Palpation Findings Tenderness Palpation Details pain with provocative tests for the SI on the left with AP glide from the ASIS left sacral LUIZ Palpation Location left sacral LUIZ Palpation Findings Tenderness Palpation Details LEft sacral LUIZ is shallow and Right sacral LUIZ is deep PT-OP-K Range of Motion Start: 06/22/19 10:49 Freq: Status: Active Protocol: Document 06/20/19 16:00 [facility] (Rec: 06/22/19 10:51 [facility] [email or web address]) Lumbar Spine Range of Motion Lumbar Spine Active Testing Position Standing Flexion 60 ROM Limitations Soft Tissue Tightness,Muscle Tone Comments pain with forward flexion in the left sacrum Hip Goniometric Range of Motion Hip Left Hip ROM WFL No Testing Position Supine Hip ROM Limitations Hip ROM Limitations Pain Comments pain with left hip ER in both standing and supine, pain is reproduced in the left sacral region PT-OP-Q Treatments Start: 06/20/19 15:22 Freq: Status: Active Protocol: Document 08/08/19 09:00 [facility] (Rec: 08/15/19 11:27 [facility] [id number]) Therapeutic Exercises Supine Exercises piriformis stretch Supine Exercise Name piriformis stretch Reps/Minutes hold 1-2 min Comments using balls for self myofascial release happy baby stretch Supine Exercise Name worked on happy baby against the wall Reps/Minutes 1-2 reps hold 30 sec to 1 min Comments for pelvic floor relaxation Other Exercises 2 Other Exercise Name cat cow, sidebends, rotation Comments x 10 each 1 Other Exercise Name karlos pose Manual Therapy Treatment Soft Tissue Mobilization 1 Body Location left sided piriformis release Body Position Prone Joint Mobilizations 1 Joint posterior joint capsule mobilizations in hip flexion Manual Techniques 4 Type manual piriformis stretch Comments in prone 1 Type MET for sacral counter nutation PT-OP-T Assessment and Plan Start: 06/20/19 15:22 Freq: Status: Active Protocol: Document 08/08/19 09:00 [facility] (Rec: 08/15/19 11:27 [facility] [email or web address]) Physical Therapy Assessment Assessment Summary Assessment still working with dilator, size med and this is stretching quite a bit Physical Therapy Plan Frequency and Duration Frequency of Treatment 1x/Week Duration of Treatment 8 Plan of Care Start Date 06/20/19 Plan of Care End Date 08/15/19 Therapeutic Interventions Therapeutic Interventions Home Exercise Program,Joint Mobilizations,Manual Therapy, Neuromuscular Re-education, Patient/Caregiver Education, Self-Care/Home Management,Soft Tissue Mobilization, Therapeutic Exercises Modalities Biofeedback,Electric Stimulation Next Visit Focus/Plan Next Note Type Progress Note Next Visit Plan continue with manual therapy techniques for the sacrum and pelvic floor relaxed awareness . Review cat cow , sidebends, rotation next visit along with TA stabilization and pelvic floor
--- NOTE | 2019-08-15 11:37 | PT.OTN ---
Current Diagnoses Low back pain (08/15/19) Other specified disorders of muscle (08/15/19) Pelvic and perineal pain (08/15/19) Physical Therapy Treatment Note PT-OP-A Visit Information Start: 06/20/19 15:22 Freq: Status: Active Protocol: Document 08/15/19 11:28 [facility] (Rec: 08/15/19 11:37 [facility] [id number]) Out-Patient Physical Therapy Visit Information Visit Information Visit Type Treatment Note Visit Start Time 09:00 Visit Stop Time 09:45 Total Visit Minutes 45 Visit Number 7 PT-OP-B Current Condition Start: 06/20/19 15:22 Freq: Status: Active Protocol: Document 06/20/19 15:22 [facility] (Rec: 06/20/19 15:37 [facility] [id number]) Current Condition History of Current Condition Onset Date symptoms began in November 2018 fo Current Complaints urgency and leakage, pelvic pain with intercourse, LBP History of Current Condition Barbara reports she started getting sacral pain after . Did alot of mountain biking and then began having pain with sit ups, down tog, standing on one foot for long. She feels like she isn't quite lined up right. Has to use her arms to push her up when rolling over. Hasn't been able to do her gym activities due to pain . She has had discomfort with intercourse but now it is painful and she often avoids it due to pain. She leakds with strong cough and sneeze and has a strong urgency to void. SHe has a history of discectomy L4-5 in 2006, ovary removal 2000. She has been on both oral estrogen and vaginal estrogen cream for 4-5 years. She also has a history of TMJ Treatment Goals Patient/Caregiver Goals To reduce pain, improve alignment of the pelvis, decrease incontinence Current Functional Impairments (Reported) Functional Limitations- ADL's pain with rolling over in bed Functional Limitations- Recreation/ pain limiting recreational Hobbies activities such as yoga, hiking, and biking PT-OP-C Subjective Start: 06/20/19 15:22 Freq: Status: Active Protocol: Document 08/15/19 11:28 [facility] (Rec: 08/15/19 11:37 [facility] [email or web address]) OP-PT Subjective Patient Comments Patient Comments pt reports she is not leaking as much so doing better with her pelvic floor, her tailbone still gets sore and is worse in the AM. Standing flexion feels painful PT-OP-I Pelvic Floor Start: 06/20/19 15:22 Freq: Status: Active Protocol: Document 06/20/19 16:00 [facility] (Rec: 06/22/19 10:49 [facility] [email or web address]) Pelvic Floor Assessment Urine Pelvic Floor Surgery No Urinary Symptoms Urge Sensation,Incomplete Emptying Other Urinary Symptoms at times will feel like she needs to void again following urination. Leakage Size Medium Leakage Cause Exercise,Sneeze,Urge Leaks Per Day intermittent Voiding Frequency every 2 hours Nocturia 1-2 times Pelvic Clock Pelvic Clock 6-9 Guarding,Hypertonic Pelvic Clock 9-12 Guarding,Hypertonic Contraction Ability Voluntary Contraction Weak Voluntary Relaxation Weak Manual Muscle Testing Left 2 Manual Muscle Testing Right 2 Manual Muscle Testing Anterior 2 Manual Muscle Testing Posterior 2 Muscle Endurance (Seconds) 4 Comments Pelvic Floor Comments it is very difficult for Barbara to elicit a contraction due to hypertonicity of the lateral steel of her pelvic floor. Spams in the illiococcygeus bilaterally PT-OP-J Posture/Palpation/Skin Start: 06/20/19 15:22 Freq: Status: Active Protocol: Document 06/20/19 16:00 [facility] (Rec: 06/22/19 10:49 [facility] [email or web address]) Palpation Assessment Location left innominant Palpation Location left innominant inflare Palpation Findings Tenderness Palpation Details pain with provocative tests for the SI on the left with AP glide from the ASIS left sacral LUIZ Palpation Location left sacral LUIZ Palpation Findings Tenderness Palpation Details LEft sacral LUIZ is shallow and Right sacral LUIZ is deep PT-OP-K Range of Motion Start: 06/22/19 10:49 Freq: Status: Active Protocol: Document 06/20/19 16:00 [facility] (Rec: 06/22/19 10:51 [facility] [email or web address]) Lumbar Spine Range of Motion Lumbar Spine Active Testing Position Standing Flexion 60 ROM Limitations Soft Tissue Tightness,Muscle Tone Comments pain with forward flexion in the left sacrum Hip Goniometric Range of Motion Hip Left Hip ROM WFL No Testing Position Supine Hip ROM Limitations Hip ROM Limitations Pain Comments pain with left hip ER in both standing and supine, pain is reproduced in the left sacral region PT-OP-Q Treatments Start: 06/20/19 15:22 Freq: Status: Active Protocol: Document 08/15/19 11:28 [facility] (Rec: 08/15/19 11:37 [facility] [email or web address]) Manual Therapy Treatment Soft Tissue Mobilization 2 Body Location internal release of the coccygeus muscle Body Position Supine Comments pt tolerated well, she is doing better with relaxed awareness of her pelvic floor, coccygeus is still tight on the left 1 Body Location Bilateral piriformis and coxxygeal release Body Position Prone Manual Techniques 1 Type MET for sacral counter nutation PT-OP-T Assessment and Plan Start: 06/20/19 15:22 Freq: Status: Active Protocol: Document 08/15/19 11:28 [facility] (Rec: 08/15/19 11:37 [facility] [email or web address]) Physical Therapy Assessment Goals Three Impairment Decreased strength and endurance of the pelvic floor due to high tone Short Term Goal (STG) Barbara is able to relax her pelvic floor to baseline in order to properly perform a pelvic floor contraction. MUCH IMPROVED RESTING TONE AND AT TIMES HAS BEEN RELAXED FULLY STG Duration 4 weeks [employer] Goal (LTG) Barbara is able to improve the function of her pelvic floor to reduce symptoms of urinary incontinence and leakage. EXCELLENT PROGRESS LTG Duration 8 weeks Two Impairment hypertonicity of the pelvic floor muscles and pain with intercourse Short Term Goal (STG) Barbara is educated on relaxed awareness of the pelvic floor and is given a home stretching and yoga for pelvic pain program GOAL MET STG Duration 4 weeks [employer] Goal (LTG) Barbara is able to return to intercourse with overall reduced pain levels GOAL NOT YET MET LTG Duration 8 weeks One Impairment sacral torsion and sacral pain left Short Term Goal (STG) With manual therapy techniques Barbara no longer has complaints of pain along the sacral LUIZ on the left and she is able to roll in bed without pain GOOD PROGRESS< DECREASED PAIN WITH MOVEMENTS IN BED BUT TENDER FIRST THING IN THE AM AND WITH FORWARD FLEXION STG Duration 4 weeks Fpc Goal (LTG) Barbara is able to rotate her left leg into full ER and IR without sacral pain GOOD PROGRESS LTG Duration 8 weeks Progress Towards Goals Progress Towards Goals Progressing Toward Goals Progress Comments Barbara is doing better with her pelvic floor overall and is noting decreased c/o urinary incontinence. She has decreased sacral pain from her initial evaluation but still notes that if she skis or does an activity that stresses her SI joint she will have coccyx pain following the next day. Assessment Summary Assessment As mentioned above Barbara is making good progress with her pelvic floor. She has decreased c/o urinary incontinence and decreased urgency. She is still experiencing coccyx pain especially after sking type activities. Sheis very mobile in her SI joint and her coccygeus is still guarded. She felt comfortable to begin releasing her posterior pelvic floor manually so this was intiated today with good tolerance. Barbara would benefit from continued PT to meet the above stated goals Physical Therapy Plan Frequency and Duration Frequency of Treatment 1x/Week Duration of Treatment 8 Plan of Care Start Date 08/15/19 Plan of Care End Date 10/10/19 Therapeutic Interventions Therapeutic Interventions Home Exercise Program,Joint Mobilizations,Manual Therapy, Neuromuscular Re-education, Patient/Caregiver Education, Self-Care/Home Management,Soft Tissue Mobilization, Therapeutic Exercises Modalities Biofeedback,Electric Stimulation Next Visit Focus/Plan Next Note Type Treatment Note Next Visit Plan reassess tolerance to internal pelvic floor release and, work on increasing lumbar segmantal mobility, increase standing dynamic stabilization for activities such as sking
--- NOTE | 2019-08-15 11:38 | PT.OPPOC ---
Physical, Occupational & Speech Therapy At [facility] Current Diagnoses Low back pain (08/15/19) Other specified disorders of muscle (08/15/19) Pelvic and perineal pain (08/15/19) Visit Care Team Role Provider Type Judah Díaz MD Attending Provider Physician Primary Care Provider Specialty: Family Practice Address: [address] [place] [address], [facility] Email: [email or web address] Plan Of Care PT-OP-T Assessment and Plan Start: 06/20/19 15:22 Freq: Status: Active Protocol: Document 08/15/19 11:28 [facility] (Rec: 08/15/19 11:37 [facility] [id number]) Physical Therapy Assessment Goals Three Impairment Decreased strength and endurance of the pelvic floor due to high tone Short Term Goal (STG) Barbara is able to relax her pelvic floor to baseline in order to properly perform a pelvic floor contraction. MUCH IMPROVED RESTING TONE AND AT TIMES HAS BEEN RELAXED FULLY STG Duration 4 weeks [employer] Power Unit Tender Goal (LTG) Barbara is able to improve the function of her pelvic floor to reduce symptoms of urinary incontinence and leakage. EXCELLENT PROGRESS LTG Duration 8 weeks Two Impairment hypertonicity of the pelvic floor muscles and pain with intercourse Short Term Goal (STG) Barbara is educated on relaxed awareness of the pelvic floor and is given a home stretching and yoga for pelvic pain program GOAL MET STG Duration 4 weeks [employer] Power Unit Tender Goal (LTG) Barbara is able to return to intercourse with overall reduced pain levels GOAL NOT YET MET LTG Duration 8 weeks One Impairment sacral torsion and sacral pain left Short Term Goal (STG) With manual therapy techniques Barbara no longer has complaints of pain along the sacral LUIZ on the left and she is able to roll in bed without pain GOOD PROGRESS< DECREASED PAIN WITH MOVEMENTS IN BED BUT TENDER FIRST THING IN THE AM AND WITH FORWARD FLEXION STG Duration 4 weeks Care Home Goal (LTG) Barbara is able to rotate her left leg into full ER and IR without sacral pain GOOD PROGRESS LTG Duration 8 weeks Progress Towards Goals Progress Towards Goals Progressing Toward Goals Progress Comments Barbara is doing better with her pelvic floor overall and is noting decreased c/o urinary incontinence. She has decreased sacral pain from her initial evaluation but still notes that if she skis or does an activity that stresses her SI joint she will have coccyx pain following the next day. Assessment Summary Assessment As mentioned above Barbara is making good progress with her pelvic floor. She has decreased c/o urinary incontinence and decreased urgency. She is still experiencing coccyx pain especially after skiing type activities. She is very mobile in her SI joint and her coccygeus is still guarded. She felt comfortable to begin releasing her posterior pelvic floor manually so this was initiated today with good tolerance. Barbara would benefit from continued PT to meet the above stated goals Physical Therapy Plan Frequency and Duration Frequency of Treatment 1x/Week Duration of Treatment 8 Plan of Care Start Date 08/15/19 Plan of Care End Date 10/10/19 Therapeutic Interventions Therapeutic Interventions Home Exercise Program,Joint Mobilizations,Manual Therapy, Neuromuscular Re-education, Patient/Caregiver Education, Self-Care/Home Management,Soft Tissue Mobilization, Therapeutic Exercises Modalities Biofeedback,Electric Stimulation Next Visit Focus/Plan Next Note Type Treatment Note Next Visit Plan reassess tolerance to internal pelvic floor release and, work on increasing lumbar segmental mobility, increase standing dynamic stabilization for activities such as skiing Plan of Care Dates Plan of Care Start Date 08/15/19 Plan of Care End Date 10/10/19 Electronically Signed by: Ariadna Howard, PT 08/15/19 2130 Please Sign and Return: I have reviewed this Plan of Care and certify that the skilled therapy services above are required to meet the patient?s needs. Physician Signature Date Printed Name and Credentials Clinical Instructor Signature Printed Name and Credentials
--- NOTE | 2019-08-29 17:41 | PT.OTN ---
Current Diagnoses Low back pain (08/29/19) Other specified disorders of muscle (08/29/19) Pelvic and perineal pain (08/29/19) Physical Therapy Treatment Note PT-OP-A Visit Information Start: 06/20/19 15:22 Freq: Status: Active Protocol: Document 08/29/19 17:28 [facility] (Rec: 08/29/19 17:41 [facility] [id number]) Out-Patient Physical Therapy Visit Information Visit Information Visit Type Treatment Note Visit Start Time 15:15 Visit Stop Time 16:00 Total Visit Minutes 45 Visit Number 8 PT-OP-B Current Condition Start: 06/20/19 15:22 Freq: Status: Active Protocol: Document 06/20/19 15:22 [facility] (Rec: 06/20/19 15:37 [facility] [id number]) Current Condition History of Current Condition Onset Date symptoms began in November 2018 fo Current Complaints urgency and leakage, pelvic pain with intercourse, LBP History of Current Condition Barbara reports she started getting sacral pain after . Did alot of mountain biking and then began having pain with sit ups, down tog, standing on one foot for long. She feels like she isn't quite lined up right. Has to use her arms to push her up when rolling over. Hasn't been able to do her gym activities due to pain . She has had discomfort with intercourse but now it is painful and she often avoids it due to pain. She leakds with strong cough and sneeze and has a strong urgency to void. SHe has a history of discectomy L4-5 in 2006, ovary removal 2000. She has been on both oral estrogen and vaginal estrogen cream for 4-5 years. She also has a history of TMJ Treatment Goals Patient/Caregiver Goals To reduce pain, improve alignment of the pelvis, decrease incontinence Current Functional Impairments (Reported) Functional Limitations- ADL's pain with rolling over in bed Functional Limitations- Recreation/ pain limiting recreational Hobbies activities such as yoga, hiking, and biking PT-OP-C Subjective Start: 06/20/19 15:22 Freq: Status: Active Protocol: Document 08/29/19 17:28 [facility] (Rec: 08/29/19 17:41 [facility] [email or web address]) OP-PT Subjective Patient Comments Patient Comments Barbara reports she did try a TRX class and felt very off balance on her left LE. She reports that she has felt weaker on the left side since her disectomy. She has also felt a little bit of the nerve irritation in the left lateral leg and gluteal region . She would like standing stabilization exercies to do. PT-OP-I Pelvic Floor Start: 06/20/19 15:22 Freq: Status: Active Protocol: Document 06/20/19 16:00 [facility] (Rec: 06/22/19 10:49 [facility] [id number]) Pelvic Floor Assessment Urine Pelvic Floor Surgery No Urinary Symptoms Urge Sensation,Incomplete Emptying Other Urinary Symptoms at times will feel like she needs to void again following urination. Leakage Size Medium Leakage Cause Exercise,Sneeze,Urge Leaks Per Day intermittent Voiding Frequency every 2 hours Nocturia 1-2 times Pelvic Clock Pelvic Clock 6-9 Guarding,Hypertonic Pelvic Clock 9-12 Guarding,Hypertonic Contraction Ability Voluntary Contraction Weak Voluntary Relaxation Weak Manual Muscle Testing Left 2 Manual Muscle Testing Right 2 Manual Muscle Testing Anterior 2 Manual Muscle Testing Posterior 2 Muscle Endurance (Seconds) 4 Comments Pelvic Floor Comments it is very difficult for Barbara to elicit a contraction due to hypertonicity of the lateral steel of her pelvic floor. Spams in the illiococcygeus bilaterally PT-OP-J Posture/Palpation/Skin Start: 06/20/19 15:22 Freq: Status: Active Protocol: Document 06/20/19 16:00 [facility] (Rec: 06/22/19 10:49 [facility] [id number]) Palpation Assessment Location left innominant Palpation Location left innominant inflare Palpation Findings Tenderness Palpation Details pain with provocative tests for the SI on the left with AP glide from the ASIS left sacral LUIZ Palpation Location left sacral LUIZ Palpation Findings Tenderness Palpation Details LEft sacral LUIZ is shallow and Right sacral LUIZ is deep PT-OP-K Range of Motion Start: 06/22/19 10:49 Freq: Status: Active Protocol: Document 06/20/19 16:00 [facility] (Rec: 06/22/19 10:51 [facility] [id number]) Lumbar Spine Range of Motion Lumbar Spine Active Testing Position Standing Flexion 60 ROM Limitations Soft Tissue Tightness,Muscle Tone Comments pain with forward flexion in the left sacrum Hip Goniometric Range of Motion Hip Left Hip ROM WFL No Testing Position Supine Hip ROM Limitations Hip ROM Limitations Pain Comments pain with left hip ER in both standing and supine, pain is reproduced in the left sacral region PT-OP-Q Treatments Start: 06/20/19 15:22 Freq: Status: Active Protocol: Document 08/29/19 17:28 [facility] (Rec: 08/29/19 17:41 [facility] [id number]) Therapeutic Exercises Supine Exercises 3 Supine Exercise Name pelvic floor long holds 10 seconds on 10 seconds off Reps/Minutes x 10 reps Comments with cues to relax the pelvic floor Standing Exercises 3 Standing Exercise Name standing lunges 2 Standing Exercise Name standing single leg stance balance 1 Standing Exercise Name standing single leg stance clocks Comments bilateral Manual Therapy Treatment Soft Tissue Mobilization 3 Body Location sidelying obturator internus release on the left Mobilization Type Myofascial Release Body Position right sidelying PT-OP-T Assessment and Plan Start: 06/20/19 15:22 Freq: Status: Active Protocol: Document 08/29/19 17:28 [facility] (Rec: 08/29/19 17:41 [facility] [id number]) Physical Therapy Assessment Assessment Summary Assessment Barbara reports she did try intercourse again and insertion is still really tight. We talked about moving up to the next dilator size but she is not ready to do that yet
--- NOTE | 2019-10-01 10:13 | PT.OTN ---
Current Diagnoses Low back pain (09/26/19) Other specified disorders of muscle (09/26/19) Pelvic and perineal pain (09/26/19) Physical Therapy Treatment Note PT-OP-A Visit Information Start: 06/20/19 15:22 Freq: Status: Active Protocol: Document 09/26/19 13:00 [facility] (Rec: 10/01/19 10:12 [facility] [id number]) Out-Patient Physical Therapy Visit Information Visit Information Visit Type Treatment Note Visit Start Time 13:00 Visit Stop Time 13:45 Total Visit Minutes 45 Visit Number 9 PT-OP-B Current Condition Start: 06/20/19 15:22 Freq: Status: Active Protocol: Document 06/20/19 15:22 [facility] (Rec: 06/20/19 15:37 [facility] [id number]) Current Condition History of Current Condition Onset Date symptoms began in November 2018 fo Current Complaints urgency and leakage, pelvic pain with intercourse, LBP History of Current Condition Barbara reports she started getting sacral pain after . Did alot of mountain biking and then began having pain with sit ups, down tog, standing on one foot for long. She feels like she isn't quite lined up right. Has to use her arms to push her up when rolling over. Hasn't been able to do her gym activities due to pain . She has had discomfort with intercourse but now it is painful and she often avoids it due to pain. She leakds with strong cough and sneeze and has a strong urgency to void. SHe has a history of discectomy L4-5 in 2006, ovary removal 2000. She has been on both oral estrogen and vaginal estrogen cream for 4-5 years. She also has a history of TMJ Treatment Goals Patient/Caregiver Goals To reduce pain, improve alignment of the pelvis, decrease incontinence Current Functional Impairments (Reported) Functional Limitations- ADL's pain with rolling over in bed Functional Limitations- Recreation/ pain limiting recreational Hobbies activities such as yoga, hiking, and biking PT-OP-C Subjective Start: 06/20/19 15:22 Freq: Status: Active Protocol: Document 09/26/19 13:00 [facility] (Rec: 10/01/19 10:12 [facility] [email or web address]) OP-PT Subjective Patient Comments Patient Comments Barbara has TRX straps for home now and has been trying to use them for dynamic strengthening. She reports she is no longer experiencing the leakage she had. She is very tight first thing in the am in her sacral region. As the day progresses this tightness lessens and she feels good and not in pain. Am's though she is painful in the sacrum. She has been trying the dilator for pelvic floor tightness but still notes painful intercourse PT-OP-I Pelvic Floor Start: 06/20/19 15:22 Freq: Status: Active Protocol: Document 06/20/19 16:00 [facility] (Rec: 06/22/19 10:49 [facility] [id number]) Pelvic Floor Assessment Urine Pelvic Floor Surgery No Urinary Symptoms Urge Sensation,Incomplete Emptying Other Urinary Symptoms at times will feel like she needs to void again following urination. Leakage Size Medium Leakage Cause Exercise,Sneeze,Urge Leaks Per Day intermittent Voiding Frequency every 2 hours Nocturia 1-2 times Pelvic Clock Pelvic Clock 6-9 Guarding,Hypertonic Pelvic Clock 9-12 Guarding,Hypertonic Contraction Ability Voluntary Contraction Weak Voluntary Relaxation Weak Manual Muscle Testing Left 2 Manual Muscle Testing Right 2 Manual Muscle Testing Anterior 2 Manual Muscle Testing Posterior 2 Muscle Endurance (Seconds) 4 Comments Pelvic Floor Comments it is very difficult for Barbara to elicit a contraction due to hypertonicity of the lateral steel of her pelvic floor. Spams in the illiococcygeus bilaterally PT-OP-J Posture/Palpation/Skin Start: 06/20/19 15:22 Freq: Status: Active Protocol: Document 06/20/19 16:00 [facility] (Rec: 06/22/19 10:49 [facility] [email or web address]) Palpation Assessment Location left innominant Palpation Location left innominant inflare Palpation Findings Tenderness Palpation Details pain with provocative tests for the SI on the left with AP glide from the ASIS left sacral LUIZ Palpation Location left sacral LUIZ Palpation Findings Tenderness Palpation Details LEft sacral LUIZ is shallow and Right sacral LUIZ is deep PT-OP-K Range of Motion Start: 06/22/19 10:49 Freq: Status: Active Protocol: Document 06/20/19 16:00 [facility] (Rec: 06/22/19 10:51 [facility] [id number]) Lumbar Spine Range of Motion Lumbar Spine Active Testing Position Standing Flexion 60 ROM Limitations Soft Tissue Tightness,Muscle Tone Comments pain with forward flexion in the left sacrum Hip Goniometric Range of Motion Hip Left Hip ROM WFL No Testing Position Supine Hip ROM Limitations Hip ROM Limitations Pain Comments pain with left hip ER in both standing and supine, pain is reproduced in the left sacral region PT-OP-Q Treatments Start: 06/20/19 15:22 Freq: Status: Active Protocol: Document 09/26/19 13:00 [facility] (Rec: 10/01/19 10:12 [facility] [id number]) Manual Therapy Treatment Soft Tissue Mobilization 3 Body Location sidelying obturator internus release on the left Mobilization Type Myofascial Release Body Position right sidelying 2 Body Location internal release of the coccygeus muscle Body Position Supine Comments pt tolerated well, she is doing better with relaxed awareness of her pelvic floor, coccygeus is still tight on the left 1 Body Location Bilateral piriformis and coxxygeal release Body Position Prone PT-OP-T Assessment and Plan Start: 06/20/19 15:22 Freq: Status: Active Protocol: Document 09/26/19 13:00 [facility] (Rec: 10/01/19 10:12 [facility] [email or web address]) Physical Therapy Assessment Assessment Summary Assessment I worked on the left obturatur internus today and internal coccygeus release. Barbara did note some release from this today. She will continue to work on her dilator for stretching at home and would benefit from continued PT Physical Therapy Plan Frequency and Duration Frequency of Treatment 1x/Week Duration of Treatment 8 Plan of Care Start Date 08/15/19 Plan of Care End Date 10/10/19
--- NOTE | 2019-10-10 18:16 | PT.OTN ---
Current Diagnoses Low back pain (10/10/19) Other specified disorders of muscle (10/10/19) Pelvic and perineal pain (10/10/19) Physical Therapy Treatment Note PT-OP-A Visit Information Start: 06/20/19 15:22 Freq: Status: Active Protocol: Document 10/10/19 09:01 [facility]PLACED BY [facility] (Rec: 10/10/19 09:08 REPLACED BY [facility] [id number]) Out-Patient Physical Therapy Visit Information Visit Information Visit Type Treatment Note Visit Start Time 09:00 Visit Stop Time 09:45 Total Visit Minutes 45 Visit Number 10 PT-OP-B Current Condition Start: 06/20/19 15:22 Freq: Status: Active Protocol: Document 06/20/19 15:22 [facility]PL[facility]ED BY [facility] (Rec: 06/20/19 15:37 REPLACED BY [facility] [id number]) Current Condition History of Current Condition Onset Date symptoms began in November 2018 fo Current Complaints urgency and leakage, pelvic pain with intercourse, LBP History of Current Condition Barbara reports she started getting sacral pain after . Did alot of mountain biking and then began having pain with sit ups, down tog, standing on one foot for long. She feels like she isn't quite lined up right. Has to use her arms to push her up when rolling over. Hasn't been able to do her gym activities due to pain . She has had discomfort with intercourse but now it is painful and she often avoids it due to pain. She leakds with strong cough and sneeze and has a strong urgency to void. SHe has a history of discectomy L4-5 in 2006, ovary removal 2000. She has been on both oral estrogen and vaginal estrogen cream for 4-5 years. She also has a history of TMJ Treatment Goals Patient/Caregiver Goals To reduce pain, improve alignment of the pelvis, decrease incontinence Current Functional Impairments (Reported) Functional Limitations- ADL's pain with rolling over in bed Functional Limitations- Recreation/ pain limiting recreational Hobbies activities such as yoga, hiking, and biking PT-OP-C Subjective Start: 06/20/19 15:22 Freq: Status: Active Protocol: Document 10/10/19 09:01 REPLACED BY [facility] (Rec: 10/10/19 09:08 REPLACED BY [facility] [id number]) OP-PT Subjective Patient Comments Patient Comments was sick with the flu and sleeping on a different bed and her back is not as tight in the am as it had been. Patient Reported Progress Improving PT-OP-I Pelvic Floor Start: 06/20/19 15:22 Freq: Status: Active Protocol: Document 06/20/19 16:00 [facility] (Rec: 06/22/19 10:49 [facility]PL[facility]ED BY [facility] [email or web address]) Pelvic Floor Assessment Urine Pelvic Floor Surgery No Urinary Symptoms Urge Sensation,Incomplete Emptying Other Urinary Symptoms at times will feel like she needs to void again following urination. Leakage Size Medium Leakage Cause Exercise,Sneeze,Urge Leaks Per Day intermittent Voiding Frequency every 2 hours Nocturia 1-2 times Pelvic Clock Pelvic Clock 6-9 Guarding,Hypertonic Pelvic Clock 9-12 Guarding,Hypertonic Contraction Ability Voluntary Contraction Weak Voluntary Relaxation Weak Manual Muscle Testing Left 2 Manual Muscle Testing Right 2 Manual Muscle Testing Anterior 2 Manual Muscle Testing Posterior 2 Muscle Endurance (Seconds) 4 Comments Pelvic Floor Comments it is very difficult for Barbara to elicit a contraction due to hypertonicity of the lateral steel of her pelvic floor. Spams in the illiococcygeus bilaterally PT-OP-J Posture/Palpation/Skin Start: 06/20/19 15:22 Freq: Status: Active Protocol: Document 06/20/19 16:00 [facility] (Rec: 06/22/19 10:49 [facility]PLACED BY [facility] [id number]) Palpation Assessment Location left innominant Palpation Location left innominant inflare Palpation Findings Tenderness Palpation Details pain with provocative tests for the SI on the left with AP glide from the ASIS left sacral LUIZ Palpation Location left sacral LUIZ Palpation Findings Tenderness Palpation Details LEft sacral LUIZ is shallow and Right sacral LUIZ is deep PT-OP-K Range of Motion Start: 06/22/19 10:49 Freq: Status: Active Protocol: Document 06/20/19 16:00 [facility] (Rec: 06/22/19 10:51 [facility]PLACED BY [facility] [id number]) Lumbar Spine Range of Motion Lumbar Spine Active Testing Position Standing Flexion 60 ROM Limitations Soft Tissue Tightness,Muscle Tone Comments pain with forward flexion in the left sacrum Hip Goniometric Range of Motion Hip Left Hip ROM WFL No Testing Position Supine Hip ROM Limitations Hip ROM Limitations Pain Comments pain with left hip ER in both standing and supine, pain is reproduced in the left sacral region PT-OP-Q Treatments Start: 06/20/19 15:22 Freq: Status: Active Protocol: Document 10/10/19 18:10 [facility] (Rec: 03/12/20 18:11 REPLACED BY [facility] [id number]) Therapeutic Exercises Supine Exercises 3 Supine Exercise Name pelvic floor long holds 10 seconds on 10 seconds off Reps/Minutes x 10 reps Comments with cues to relax the pelvci floor piriformis stretch Supine Exercise Name piriformis stretch Reps/Minutes hold 1-2 min Comments using balls for self myofascial release Sidelying Exercises clam shells Sidelying Exercise Name sidelying clam shells Reps/Minutes 2 x 10 reps Other Exercises 2 Other Exercise Name cat cow, sidebends, rotation Comments x 10 each Manual Therapy Treatment Soft Tissue Mobilization 3 Body Location sidelying obturator internus release on the left Mobilization Type Myofascial Release Body Position right sidelying 2 Body Location internal release of the coccygeus muscle Body Position Supine Comments pt tolerated well, she is doing better with relaxed awareness of her pelvic floor, coccygeus is still tight on the left 1 Body Location Bilateral piriformis and coxxygeal release Body Position Prone PT-OP-T Assessment and Plan Start: 06/20/19 15:22 Freq: Status: Active Protocol: Document 10/10/19 18:11 REPLACED BY [facility] (Rec: 10/10/19 18:16 REPLACED BY [facility] [id number]) Physical Therapy Assessment Goals Three Impairment Decreased strength and endurance of the pelvic floor due to high tone Short Term Goal (STG) Barbara is able to relax her pelvic floor to baseline in order to properly perform a pelvic floor contraction. GOAL MET as of 10/10/19 STG Duration 4 weeks Communication Consultant Goal (LTG) Barbara is able to improve the function of her pelvic floor to reduce symptoms of urinary incontinence and leakage. EXCELLENT PROGRESS LTG Duration 8 weeks Two Impairment hypertonicity of the pelvic floor muscles and pain with intercourse Short Term Goal (STG) Barbara is educated on relaxed awareness of the pelvic floor and is given a home stretching and yoga for pelvic pain program GOAL MET STG Duration 4 weeks Communication Consultant Goal (LTG) Barbara is able to return to intercourse with overall reduced pain levels GOAL NOT YET MET, LTG Duration 8 weeks One Impairment sacral torsion and sacral pain left Short Term Goal (STG) With manual therapy techniques Barbara no longer has complaints of pain along the sacral LUIZ on the left and she is able to roll in bed without pain GOOD PROGRESS< DECREASED PAIN WITH MOVEMENTS IN BED BUT TENDER FIRST THING IN THE AM AND WITH FORWARD FLEXION STG Duration 4 weeks Communication Consultant Goal (LTG) Barbara is able to rotate her left leg into full ER and IR without sacral pain GOOD PROGRESS LTG Duration 8 weeks Progress Towards Goals Progress Towards Goals Progressing Toward Goals Progress Comments Decreasing complaints of sacral pain. Still experiencing pain with intercourse. Assessment Summary Assessment Decreased tone in the levator ani today with manual therapy treatments. Pt to continue using the dilator for stretching the pelvic floor at home Physical Therapy Plan Frequency and Duration Frequency of Treatment 1x/Week Duration of Treatment 8 Plan of Care Start Date 10/10/19 Plan of Care End Date 12/05/19 Therapeutic Interventions Therapeutic Interventions Home Exercise Program,Joint Mobilizations,Manual Therapy, Neuromuscular Re-education, Patient/Caregiver Education, Self-Care/Home Management,Soft Tissue Mobilization, Therapeutic Exercises Modalities Biofeedback,Electric Stimulation Next Visit Focus/Plan Next Note Type Treatment Note Next Visit Plan reassess tolerance to internal pelvic floor release and, work on increasing lumbar segmantal mobility, increase standing dynamic stabilization for activities such as sking
--- NOTE | 2019-10-10 18:17 | PT.OPPOC ---
Physical, Occupational & Speech Therapy At [facility] Current Diagnoses Low back pain (10/10/19) Other specified disorders of muscle (10/10/19) Pelvic and perineal pain (10/10/19) Visit Care Team Role Provider Type Judah Díaz MD Attending Provider Physician Primary Care Provider Specialty: Family Practice Address: [address] [place] [address], [facility] Email: [email or web address] Plan Of Care PT-OP-T Assessment and Plan Start: 06/20/19 15:22 Freq: Status: Active Protocol: Document 10/10/19 18:11 [facility] (Rec: 10/10/19 18:16 [facility] [id number]) Physical Therapy Assessment Goals Three Impairment Decreased strength and endurance of the pelvic floor due to high tone Short Term Goal (STG) Barbara is able to relax her pelvic floor to baseline in order to properly perform a pelvic floor contraction. GOAL MET as of 10/10/19 STG Duration 4 weeks [facility] Goal (LTG) Barbara is able to improve the function of her pelvic floor to reduce symptoms of urinary incontinence and leakage. EXCELLENT PROGRESS LTG Duration 8 weeks Two Impairment hypertonicity of the pelvic floor muscles and pain with intercourse Short Term Goal (STG) Barbara is educated on relaxed awareness of the pelvic floor and is given a home stretching and yoga for pelvic pain program GOAL MET STG Duration 4 weeks [employer] Goal (LTG) Barbara is able to return to intercourse with overall reduced pain levels GOAL NOT YET MET, LTG Duration 8 weeks One Impairment sacral torsion and sacral pain left Short Term Goal (STG) With manual therapy techniques Barbara no longer has complaints of pain along the sacral LUIZ on the left and she is able to roll in bed without pain GOOD PROGRESS< DECREASED PAIN WITH MOVEMENTS IN BED BUT TENDER FIRST THING IN THE AM AND WITH FORWARD FLEXION STG Duration 4 weeks [employer] Goal (LTG) Barbara is able to rotate her left leg into full ER and IR without sacral pain GOOD PROGRESS LTG Duration 8 weeks Progress Towards Goals Progress Towards Goals Progressing Toward Goals Progress Comments Decreasing complaints of sacral pain. Still experiencing pain with intercourse. Assessment Summary Assessment Decreased tone in the levator ani today with manual therapy treatments. Pt to continue using the dilator for stretching the pelvic floor at home Physical Therapy Plan Frequency and Duration Frequency of Treatment 1x/Week Duration of Treatment 8 Plan of Care Start Date 10/10/19 Plan of Care End Date 12/05/19 Therapeutic Interventions Therapeutic Interventions Home Exercise Program,Joint Mobilizations,Manual Therapy, Neuromuscular Re-education, Patient/Caregiver Education, Self-Care/Home Management,Soft Tissue Mobilization, Therapeutic Exercises Modalities Biofeedback,Electric Stimulation Next Visit Focus/Plan Next Note Type Treatment Note Next Visit Plan reassess tolerance to internal pelvic floor release and, work on increasing lumbar segmental mobility, increase standing dynamic stabilization for activities such as skiing Plan of Care Dates Plan of Care Start Date 10/10/19 Plan of Care End Date 12/05/19 Electronically Signed by: Ariadna Howard, PT 10/10/19 2063 Please Sign and Return: I have reviewed this Plan of Care and certify that the skilled therapy services above are required to meet the patient?s needs. Physician Signature Date Printed Name and Credentials Clinical Instructor Signature Printed Name and Credentials
--- NOTE | 2019-10-17 11:32 | PT.OTN ---
Current Diagnoses Low back pain (10/17/19) Other specified disorders of muscle (10/17/19) Pelvic and perineal pain (10/17/19) Physical Therapy Treatment Note PT-OP-A Visit Information Start: 06/20/19 15:22 Freq: Status: Active Protocol: Document 10/17/19 09:07 [facility] (Rec: 10/17/19 09:53 [facility] [id number]) Out-Patient Physical Therapy Visit Information Visit Information Visit Type Treatment Note Visit Start Time 09:12 Visit Stop Time 09:45 Total Visit Minutes 33 Visit Number 11 PT-OP-B Current Condition Start: 06/20/19 15:22 Freq: Status: Active Protocol: Document 06/20/19 15:22 [facility] (Rec: 06/20/19 15:37 [facility] [id number]) Current Condition History of Current Condition Onset Date symptoms began in November 2018 fo Current Complaints urgency and leakage, pelvic pain with intercourse, LBP History of Current Condition Barbara reports she started getting sacral pain after . Did alot of mountain biking and then began having pain with sit ups, down tog, standing on one foot for long. She feels like she isn't quite lined up right. Has to use her arms to push her up when rolling over. Hasn't been able to do her gym activities due to pain . She has had discomfort with intercourse but now it is painful and she often avoids it due to pain. She leakds with strong cough and sneeze and has a strong urgency to void. SHe has a history of discectomy L4-5 in 2006, ovary removal 2000. She has been on both oral estrogen and vaginal estrogen cream for 4-5 years. She also has a history of TMJ Treatment Goals Patient/Caregiver Goals To reduce pain, improve alignment of the pelvis, decrease incontinence Current Functional Impairments (Reported) Functional Limitations- ADL's pain with rolling over in bed Functional Limitations- Recreation/ pain limiting recreational Hobbies activities such as yoga, hiking, and biking PT-OP-C Subjective Start: 06/20/19 15:22 Freq: Status: Active Protocol: Document 10/17/19 09:07 [facility] (Rec: 10/17/19 09:53 [facility] [id number]) OP-PT Subjective Patient Comments Patient Comments still sleeping in a different bed, her back has a bit of a catch but overall it is improved. Her new matress is delivered next. She is still working on using her dilator and has not yet felt that she could go up in size yet. Patient Reported Progress Improving PT-OP-I Pelvic Floor Start: 06/20/19 15:22 Freq: Status: Active Protocol: Document 06/20/19 16:00 [facility] (Rec: 06/22/19 10:49 [facility] [id number]) Pelvic Floor Assessment Urine Pelvic Floor Surgery No Urinary Symptoms Urge Sensation,Incomplete Emptying Other Urinary Symptoms at times will feel like she needs to void again following urination. Leakage Size Medium Leakage Cause Exercise,Sneeze,Urge Leaks Per Day intermittent Voiding Frequency every 2 hours Nocturia 1-2 times Pelvic Clock Pelvic Clock 6-9 Guarding,Hypertonic Pelvic Clock 9-12 Guarding,Hypertonic Contraction Ability Voluntary Contraction Weak Voluntary Relaxation Weak Manual Muscle Testing Left 2 Manual Muscle Testing Right 2 Manual Muscle Testing Anterior 2 Manual Muscle Testing Posterior 2 Muscle Endurance (Seconds) 4 Comments Pelvic Floor Comments it is very difficult for Barbara to elicit a contraction due to hypertonicity of the lateral steel of her pelvic floor. Spams in the illiococcygeus bilaterally PT-OP-J Posture/Palpation/Skin Start: 06/20/19 15:22 Freq: Status: Active Protocol: Document 06/20/19 16:00 [facility] (Rec: 06/22/19 10:49 [facility] [id number]) Palpation Assessment Location left innominant Palpation Location left innominant inflare Palpation Findings Tenderness Palpation Details pain with provocative tests for the SI on the left with AP glide from the ASIS left sacral LUIZ Palpation Location left sacral LUIZ Palpation Findings Tenderness Palpation Details LEft sacral LUIZ is shallow and Right sacral LUIZ is deep PT-OP-K Range of Motion Start: 06/22/19 10:49 Freq: Status: Active Protocol: Document 06/20/19 16:00 [facility] (Rec: 06/22/19 10:51 [facility] [id number]) Lumbar Spine Range of Motion Lumbar Spine Active Testing Position Standing Flexion 60 ROM Limitations Soft Tissue Tightness,Muscle Tone Comments pain with forward flexion in the left sacrum Hip Goniometric Range of Motion Hip Left Hip ROM WFL No Testing Position Supine Hip ROM Limitations Hip ROM Limitations Pain Comments pain with left hip ER in both standing and supine, pain is reproduced in the left sacral region PT-OP-Q Treatments Start: 06/20/19 15:22 Freq: Status: Active Protocol: Document 10/17/19 11:23 [facility] (Rec: 10/17/19 11:28 [facility] [id number]) Manual Therapy Treatment Soft Tissue Mobilization 3 Body Location sidelying obturator internus release on the left Mobilization Type Myofascial Release Body Position right sidelying 2 Body Location internal release of the coccygeus muscle Body Position Supine Comments pt tolerated well, she is doing better with relaxed awareness of her pelvic floor, coccygeus is not as tight on the left now. Showing improvements. 1 Body Location Bilateral piriformis and coxxygeal release Body Position Prone Self-Care/Home Management Treatment Education Patient Education Home Exercise Program Other Education pt given a size large dilator for home use to move up to once she is able to tolerate the medium dilator PT-OP-T Assessment and Plan Start: 06/20/19 15:22 Freq: Status: Active Protocol: Document 10/17/19 11:23 [facility] (Rec: 10/17/19 11:28 [facility] [id number]) Physical Therapy Assessment Assessment Summary Assessment Overall decreased tone in levator ani and Barbara is able to relax her pelvic floor following a contraction now. We will hold off x 1 month on treatments and let her work independently and will then resume PT for a recheck in a month. Physical Therapy Plan Frequency and Duration Frequency of Treatment 1x/Week Duration of Treatment 8 Plan of Care Start Date 10/10/19 Plan of Care End Date 12/05/19 Therapeutic Interventions Therapeutic Interventions Home Exercise Program,Joint Mobilizations,Manual Therapy, Neuromuscular Re-education, Patient/Caregiver Education, Self-Care/Home Management,Soft Tissue Mobilization, Therapeutic Exercises Modalities Biofeedback,Electric Stimulation Next Visit Focus/Plan Next Note Type Treatment Note Next Visit Plan reassess pain symptoms in 4 weeks, recheck tone of the levator ani and sacral position
--- NOTE | 2020-04-06 14:42 | PT.OPDS ---
Current Diagnoses Low back pain (10/17/19) Other specified disorders of muscle (10/17/19) Pelvic and perineal pain (10/17/19) Visit Care Team Role Provider Type Judah Díaz MD Attending Provider Physician Primary Care Provider Specialty: Family Practice Address: [address] [place] [address], [facility] Email: [email or web address] Visit Number Visit Number 11 Discharge Summary PT-OP-B Current Condition Start: 06/20/19 15:22 Freq: Status: Active Protocol: Document 06/20/19 15:22 [facility] (Rec: 06/20/19 15:37 [facility] [id number]) Current Condition History of Current Condition Onset Date symptoms began in November 2018 fo Current Complaints urgency and leakage, pelvic pain with intercourse, LBP History of Current Condition Barbara reports she started getting sacral pain after . Did alot of mountain biking and then began having pain with sit ups, down tog, standing on one foot for long. She feels like she isn't quite lined up right. Has to use her arms to push her up when rolling over. Hasn't been able to do her gym activities due to pain . She has had discomfort with intercourse but now it is painful and she often avoids it due to pain. She leakds with strong cough and sneeze and has a strong urgency to void. SHe has a history of discectomy L4-5 in 2006, ovary removal 2000. She has been on both oral estrogen and vaginal estrogen cream for 4-5 years. She also has a history of TMJ Treatment Goals Patient/Caregiver Goals To reduce pain, improve alignment of the pelvis, decrease incontinence Current Functional Impairments (Reported) Functional Limitations- ADL's pain with rolling over in bed Functional Limitations- Recreation/ pain limiting recreational Hobbies activities such as yoga, hiking, and biking PT-OP-C Subjective Start: 06/20/19 15:22 Freq: Status: Active Protocol: Document 10/17/19 09:07 [facility] (Rec: 10/17/19 09:53 [facility] [id number]) OP-PT Subjective Patient Comments Patient Comments still sleeping in a different bed, her back has a bit of a catch but overall it is improved. Her new matress is delivered next. She is still working on using her dilator and has not yet felt that she could go up in size yet. Patient Reported Progress Improving PT-OP-I Pelvic Floor Start: 06/20/19 15:22 Freq: Status: Active Protocol: Document 06/20/19 16:00 [facility] (Rec: 06/22/19 10:49 [facility] [id number]) Pelvic Floor Assessment Urine Pelvic Floor Surgery No Urinary Symptoms Urge Sensation,Incomplete Emptying Other Urinary Symptoms at times will feel like she needs to void again following urination. Leakage Size Medium Leakage Cause Exercise,Sneeze,Urge Leaks Per Day intermittent Voiding Frequency every 2 hours Nocturia 1-2 times Pelvic Clock Pelvic Clock 6-9 Guarding,Hypertonic Pelvic Clock 9-12 Guarding,Hypertonic Contraction Ability Voluntary Contraction Weak Voluntary Relaxation Weak Manual Muscle Testing Left 2 Manual Muscle Testing Right 2 Manual Muscle Testing Anterior 2 Manual Muscle Testing Posterior 2 Muscle Endurance (Seconds) 4 Comments Pelvic Floor Comments it is very difficult for Barbara to elicit a contraction due to hypertonicity of the lateral steel of her pelvic floor. Spams in the illiococcygeus bilaterally PT-OP-J Posture/Palpation/Skin Start: 06/20/19 15:22 Freq: Status: Active Protocol: Document 06/20/19 16:00 [facility] (Rec: 06/22/19 10:49 [facility] [id number]) Palpation Assessment Location left innominant Palpation Location left innominant inflare Palpation Findings Tenderness Palpation Details pain with provocative tests for the SI on the left with AP glide from the ASIS left sacral LUIZ Palpation Location left sacral LUIZ Palpation Findings Tenderness Palpation Details LEft sacral LUIZ is shallow and Right sacral LUIZ is deep PT-OP-K Range of Motion Start: 06/22/19 10:49 Freq: Status: Active Protocol: Document 06/20/19 16:00 [facility] (Rec: 06/22/19 10:51 [facility] [id number]) Lumbar Spine Range of Motion Lumbar Spine Active Testing Position Standing Flexion 60 ROM Limitations Soft Tissue Tightness,Muscle Tone Comments pain with forward flexion in the left sacrum Hip Goniometric Range of Motion Hip Left Hip ROM WFL No Testing Position Supine Hip ROM Limitations Hip ROM Limitations Pain Comments pain with left hip ER in both standing and supine, pain is reproduced in the left sacral region PT-OP-T Assessment and Plan Start: 06/20/19 15:22 Freq: Status: Active Protocol: Document 04/06/20 14:41 [facility] (Rec: 04/06/20 14:42 [facility] [id number]) Physical Therapy Assessment Assessment Summary Assessment As of her last visit there was overall decreased tone in levator ani and Barbara is able to relax her pelvic floor following a contraction now. We will hold off x 1 month on treatments and let her work independently at this time. DC PT Physical Therapy Plan Discharge Physical Therapy Discharge Reasons No Longer Attending PT Discharge Comments DC to rudi Luna [facility]
== END 2020-04-07 11:28 ==
LOC: PHYS 09:00
PROVIDERS: PCP Family Medicine; Visit Provider Family Medicine
DX: M62.89 Other specified disorders of muscle (principal); R10.2 Pelvic and perineal pain; M54.5 Low back pain
CPT/HCPCS: 97110; 97112; 97140; 97161

== ENCOUNTER → 2020-08-07 12:32 | Outpatient (CLI) | payer BC, SELFPAY | PROVIDERS: PCP Family Medicine; Referring Provider Family Medicine; Visit Provider Family Medicine | DX: Z12.31 Encounter for screening mammogram for malignant neoplasm of breast (principal); Z53.20 Procedure and treatment not carried out because of patient's decision for unspecified reasons ==

== ENCOUNTER → 2020-08-22 08:08 | Outpatient (CLI) | payer BC, SELFPAY ==
--- NOTE | 2020-08-22 08:10 | DI.MG.S_ITS ---
BILATERAL DIGITAL SCREENING MAMMOGRAM 3D/2D WITH CAD: 08/22/2020 CLINICAL: Routine screening. Comparison is made to exams dated: 07/08/2019 mammogram, 07/06/2018 mammogram, and 05/05/2017 mammogram - [facility]. The tissue of both breasts is heterogeneously dense. This may lower the sensitivity of mammography. Current study was also evaluated with a Computer Aided Detection (CAD) system. No significant masses, calcifications, or other findings are seen in either breast. There has been no significant interval change. IMPRESSION: NEGATIVE There is no mammographic evidence of malignancy. A 1 year screening mammogram is recommended. This exam was interpreted at Station ID: [id number]. NOTE: For mammograms, a report in lay terms will be sent to the patient. Approximately 15% of breast malignancies will not be visualized mammographically. In the management of a palpable breast mass, a negative mammogram must not discourage biopsy of a clinically suspicious lesion. Electronically Signed By: Maciej bonner/loy:08/24/2020 07:17:09 letter sent: Normal Exam ACR BI-RADS Category 1: Negative [id number]
[2020-08-22 08:49] LABS: Alanine Aminotransferase 23 IU/L (<35); Albumin 3.9 g/dL (3.5-5.0); Albumin Globulin Ratio 1.5 (1.0-2.8); Alkaline Phosphatase 54 U/L (38-126); Aspartate Aminotransferase 25 IU/L (14-36); BUN Creatinine Ratio 28.9 (6-22); Bilirubin Total 0.4 mg/dL (0.2-1.3); Blood Urea Nitrogen 24 mg/dL (7-17); Calcium 8.3 mg/dL (8.4-10.2); Carbon Dioxide 26 mmol/L (22-32); Chloride 107 mmol/L (98-107); Cholesterol 145 mg/dL (140-199); Estimated Glomerular Filt Rate > 60.0 mL/min (>60); Globulin 2.6 g/dL (1.7-4.1); Glucose 97 mg/dL (80-110); HDL Cholesterol 51 mg/dL (40-60); HEMOLYSIS < 15 (0-50); LDL Cholesterol Calculated 67 mg/dL (<100); Potassium 3.9 mmol/L (3.4-5.1); Sodium 137 mmol/L (137-145); Total Protein 6.5 g/dL (6.3-8.2); Triglycerides 134 mg/dL (35-150)
[2020-08-22 08:58] LABS: Add Manual Diff / Slide Review NO; Basophils Absolute Auto 0 /uL (0-100); Basophils Percent Auto 0.8 % (0-2); Eosinophils Absolute Auto 200 /uL (0-450); Hematocrit 39.6 % (36-46); Hemoglobin 12.5 g/dL (12.0-16.0); Lymphocytes Absolute Auto 1900 /uL (1100-4500); Lymphocytes Percent Auto 32.3 % (25-40); Mean Corpuscular HGB Conc 31.6 % (30-36); Mean Corpuscular Hemoglobin 26.1 PG (26-34); Mean Corpuscular Volume 82.5 fL (80-100); Monocytes Absolute Auto 500 /uL (0-900); Monocytes Percent Auto 8.1 % (3-14); Neutrophils Absolute Auto 3300 /uL (1500-7000); Neutrophils Percent Auto 55.8 % (50-75); Platelet Count 171 X10^3/uL (150-400); Red Blood Cell Count 4.79 X10^6/uL (4.0-5.2); Red Cell Distribution Width 13.9 % (11.6-14.8); White Blood Cell Count 5.9 X10^3/uL (4.5-11.0)
[2020-08-22 09:43] LABS: TSH w/ Reflex to FT4 2.57 uIU/mL (0.47-4.68)
== END ==
PROVIDERS: PCP Family Medicine; Referring Provider Family Medicine; Visit Provider Family Medicine
DX: Z12.31 Encounter for screening mammogram for malignant neoplasm of breast (principal); E78.5 Hyperlipidemia, unspecified; M81.8 Other osteoporosis without current pathological fracture; Z00.00 Encounter for general adult medical examination without abnormal findings
CPT/HCPCS: 36415; 77063; 77067; 80053; 80061; 84443; 85025

== ENCOUNTER → 2021-09-03 14:40 | Outpatient (CLI) | payer BC, SELFPAY ==
--- NOTE | 2021-09-03 14:42 | DI.MG.S_ITS ---
BILATERAL DIGITAL SCREENING MAMMOGRAM 3D/2D WITH CAD: 09/03/2021 CLINICAL: Routine screening. Comparison is made to exams dated: 08/22/2020 mammogram, 07/08/2019 mammogram, and 07/06/2018 mammogram - [facility]. The tissue of both breasts is heterogeneously dense. This may lower the sensitivity of mammography. Current study was also evaluated with a Computer Aided Detection (CAD) system. There is an irregular equal density focal asymmetry with an indistinct margin in the right breast at 5 o'clock middle depth. No other significant masses, calcifications, or other findings are seen in either breast. IMPRESSION: INCOMPLETE: NEEDS ADDITIONAL IMAGING EVALUATION The irregular equal density focal asymmetry in the right breast is indeterminate. Mediolateral and spot compression views as well as additional views with possible ultrasound are recommended. This exam was interpreted at Station ID: [id number]. NOTE: For mammograms, a report in lay terms will be sent to the patient. Approximately 15% of breast malignancies will not be visualized mammographically. In the management of a palpable breast mass, a negative mammogram must not discourage biopsy of a clinically suspicious lesion. Electronically Signed By: Alberto Sarkar M.D. ddjasbir/:09/03/2021 15:16:40 letter sent: Additional Imaging Needed ACR BI-RADS Category 0: Incomplete [id number]
== END ==
PROVIDERS: PCP Family Medicine; Referring Provider Family Medicine; Visit Provider Family Medicine
DX: Z12.31 Encounter for screening mammogram for malignant neoplasm of breast (principal)
CPT/HCPCS: 77063; 77067

== ENCOUNTER → 2021-10-04 14:32 | Outpatient (CLI) | payer BC, SELFPAY ==
--- NOTE | 2021-10-04 | DI.MG.S_ITS ---
UNILATERAL RIGHT DIGITAL DIAGNOSTIC MAMMOGRAM 3D/2D WITH ADDITIONAL VIEWS: 10/04/2021 CLINICAL: Additional evaluation requested from prior study. Comparison is made to exams dated: 09/03/2021 mammogram, 08/22/2020 mammogram, 07/08/2019 mammogram, and 07/06/2018 mammogram - [facility]. The tissue of right breast is heterogeneously dense. This may lower the sensitivity of mammography. The previously described irregular equal density focal asymmetry with an indistinct margin in the right breast at 5 o'clock middle depth appears much less prominent and decreased in size. No other significant masses or calcifications are seen in the breast. IMPRESSION: INCOMPLETE: NEEDS ADDITIONAL IMAGING EVALUATION The irregular equal density focal asymmetry in the right breast most likely is dense fibroglandular tissue but is indeterminate. An ultrasound is recommended for further evaluation and is scheduled to immediately follow this examination. This exam was interpreted at Station ID: [id number]. NOTE: For mammograms, a report in lay terms will be sent to the patient. Approximately 15% of breast malignancies will not be visualized mammographically. In the management of a palpable breast mass, a negative mammogram must not discourage biopsy of a clinically suspicious lesion. Electronically Signed By: Maciej Hutton M.D. aty/:10/04/2021 16:06:10 ACR BI-RADS Category 0: Incomplete [id number]
--- NOTE | 2021-10-04 14:33 | DI.US.S_ITS ---
ULTRASOUND OF RIGHT BREAST: 10/04/2021 CLINICAL: Patient returns today to evaluate an asymmetry in the right breast. Comparison is made to exams dated: 10/04/2021 mammogram, 09/03/2021 mammogram, 08/22/2020 mammogram, 07/08/2019 mammogram, 07/06/2018 mammogram, and 05/05/2017 mammogram - . Color flow and real-time ultrasound of the right breast were performed. Lopez scale images of the real-time examination were reviewed. There is a 0.7 cm x 0.2 cm x 0.4 cm oval cyst with smooth thin septated internal steel in the right breast at 6 o'clock in the retroareolar region. This oval cyst is hypoechoic. This is an incidental finding. Color flow imaging demonstrates that there is no vascularity present. IMPRESSION: PROBABLY BENIGN The 0.7 cm x 0.2 cm x 0.4 cm oval cyst in the right breast may represent a complicated cyst versus focally dilated ducts in the subareolar region and is a probably benign finding. There is no mammographic correlate. There is no abnormality seen in the right breast to correspond with the mammography finding which likely represents normal fibroglandular tissue. A follow-up right ultrasound in 6 months is recommended to demonstrate stability. Findings and recommendations were conveyed to the patient during today's evaluation. This exam was interpreted at Station ID: [id number]. Electronically Signed By: Maciej Hutton M.D. aty/:10/04/2021 16:11:21 letter sent: Followup Recommended Ultrasound BI-RADS: 3 Probably benign
== END ==
PROVIDERS: PCP Family Medicine; Referring Provider Family Medicine; Visit Provider Family Medicine
DX: R92.8 Other abnormal and inconclusive findings on diagnostic imaging of breast (principal); N60.01 Solitary cyst of right breast
CPT/HCPCS: 76642; 77065; G0279

== ENCOUNTER → 2021-10-15 08:30 | Outpatient (CLI) | payer BC, SELFPAY ==
[2021-10-15 09:36] LABS: Add Manual Diff / Slide Review NO; Basophils Absolute Auto 0 /uL (0-100); Basophils Percent Auto 0.8 % (0-2); Eosinophils Absolute Auto 300 /uL (0-450); Eosinophils Percent Auto 4.4 % (2-4); Hematocrit 40.1 % (36-46); Hemoglobin 13.3 g/dL (12.0-16.0); Lymphocytes Absolute Auto 1500 /uL (1100-4500); Lymphocytes Percent Auto 23.2 % (25-40); Mean Corpuscular HGB Conc 33.1 % (30-36); Mean Corpuscular Hemoglobin 27.3 PG (26-34); Mean Corpuscular Volume 82.6 fL (80-100); Monocytes Absolute Auto 500 /uL (0-900); Neutrophils Absolute Auto 4100 /uL (1500-7000); Neutrophils Percent Auto 63.6 % (50-75); Platelet Count 171 X10^3/uL (150-400); Red Blood Cell Count 4.85 X10^6/uL (4.0-5.2); Red Cell Distribution Width 14.1 % (11.6-14.8); White Blood Cell Count 6.4 X10^3/uL (4.5-11.0)
[2021-10-15 10:16] LABS: Alanine Aminotransferase 18 IU/L (<35); Albumin 4.3 g/dL (3.5-5.0); Albumin Globulin Ratio 1.5 (1.0-2.8); Alkaline Phosphatase 49 U/L (38-126); Aspartate Aminotransferase 26 IU/L (14-36); BUN Creatinine Ratio 20.5 (6-22); Bilirubin Total 0.6 mg/dL (0.2-1.3); Blood Urea Nitrogen 18 mg/dL (7-17); Calcium 9.3 mg/dL (8.4-10.2); Carbon Dioxide 24 mmol/L (22-32); Chloride 108 mmol/L (98-107); Estimated Glomerular Filt Rate > 60.0 mL/min (>60); Globulin 2.8 g/dL (1.7-4.1); Glucose 87 mg/dL (80-110); HEMOLYSIS < 15 (0-50); Magnesium 2.1 mg/dL (1.6-2.3); Phosphorous 3.2 mg/dL (2.8-4.1); Potassium 4.4 mmol/L (3.4-5.1); Sodium 140 mmol/L (137-145); Total Protein 7.1 g/dL (6.3-8.2)
[2021-10-15 10:31] LABS: Vitamin D 25 Hydroxy (D3) 69.3 ng/mL (30.0-100.0)
[2021-10-15 10:49] LABS: TSH w/ Reflex to FT4 3.62 uIU/mL (0.47-4.68)
[2021-10-16 08:38] LABS: Parathyroid Hormone Int 53 pg/mL (15-65)
== END ==
PROVIDERS: PCP Family Medicine; Referring Provider Family Medicine; Visit Provider Family Medicine
DX: E83.52 Hypercalcemia (principal); Z00.00 Encounter for general adult medical examination without abnormal findings
CPT/HCPCS: 36415; 80053; 82306; 83735; 83970; 84100; 84443; 85025

== ENCOUNTER → 2021-11-19 09:42 | Outpatient (CLI) | payer BC, SELFPAY | PROVIDERS: PCP Family Medicine; Referring Provider Family Medicine; Visit Provider Family Medicine | DX: M81.0 Age-related osteoporosis without current pathological fracture (principal); Z78.0 Asymptomatic menopausal state; M99.05 Segmental and somatic dysfunction of pelvic region | CPT/HCPCS: 77080 ==

== ENCOUNTER → 2022-03-03 08:42 | Outpatient (CLI) | payer BC, SELFPAY ==
[2022-03-03 10:00] LABS: Add Manual Diff / Slide Review NO; Basophils Absolute Auto 100 /uL (0-100); Basophils Percent Auto 1.1 % (0-2); Eosinophils Absolute Auto 300 /uL (0-450); Eosinophils Percent Auto 3.1 % (2-4); Hematocrit 44.9 % (36-46); Hemoglobin 14.5 g/dL (12.0-16.0); Lymphocytes Absolute Auto 1600 /uL (1100-4500); Lymphocytes Percent Auto 17.9 % (25-40); Mean Corpuscular HGB Conc 32.3 % (30-36); Mean Corpuscular Volume 83.5 fL (80-100); Monocytes Absolute Auto 800 /uL (0-900); Monocytes Percent Auto 8.8 % (3-14); Neutrophils Absolute Auto 6300 /uL (1500-7000); Neutrophils Percent Auto 69.1 % (50-75); Platelet Count 171 X10^3/uL (150-400); Red Blood Cell Count 5.38 X10^6/uL (4.0-5.2); Red Cell Distribution Width 14.4 % (11.6-14.8); White Blood Cell Count 9.1 X10^3/uL (4.5-11.0)
[2022-03-03 10:10] LABS: INR 1.9 (0.9-1.3); Prothrombin Time 21.1 SECONDS (10.1-12.7)
[2022-03-03 10:12] LABS: PTT Partial Thromboplastin Tim 52 SECONDS (26.4-36.2)
[2022-03-03 10:55] LABS: Alanine Aminotransferase 26 IU/L (<35); Albumin 4.2 g/dL (3.5-5.0); Albumin Globulin Ratio 1.5 (1.0-2.8); Alkaline Phosphatase 70 U/L (38-126); Aspartate Aminotransferase 28 IU/L (14-36); BUN Creatinine Ratio 23.9 (6-22); Bilirubin Total 0.5 mg/dL (0.2-1.3); Blood Urea Nitrogen 22 mg/dL (7-17); Calcium 9.3 mg/dL (8.4-10.2); Carbon Dioxide 25 mmol/L (22-32); Chloride 106 mmol/L (98-107); Cholesterol 162 mg/dL (140-199); Estimated Glomerular Filt Rate > 60 mL/min (>60); Globulin 2.8 g/dL (1.7-4.1); Glucose 98 mg/dL (80-110); HDL Cholesterol 70 mg/dL (40-60); HEMOLYSIS < 15 (0-50); LDL Cholesterol Calculated 74 mg/dL (<100); Potassium 4.4 mmol/L (3.4-5.1); Sodium 139 mmol/L (137-145); Triglycerides 89 mg/dL (35-150)
[2022-03-03 11:12] LABS: Thyroid Stimulating Hormone 3.27 uIU/mL (0.47-4.68)
[2022-03-06 19:43] LABS: Beta-2 Glycoprotein I Ab IgM <9 (0-32); Cardiolipin Ab IgG <9 GPL U/mL (0-14); Cardiolipin Ab IgM 9 MPL U/mL (0-12)
[2022-03-10 13:25] LABS: Dil Russell Viper Venom Conf >1.9 ratio (0.8-1.2); Dilute Russell Viper Venom >180.0 sec (0.0-47.0); Dilute Russell Viper Venom Mix 129.4 sec (0.0-40.4); PTT-LA 44.8 sec (0.0-51.9)
== END ==
PROVIDERS: Internal Medicine Cardiovascular Disease; PCP Family Medicine; Referring Provider Physician Assistant; Visit Provider Physician Assistant
DX: Z13.220 Encounter for screening for lipoid disorders (principal); I48.19 Other persistent atrial fibrillation; I50.30 Unspecified diastolic (congestive) heart failure; Z79.01 Long term (current) use of anticoagulants; Z82.49 Family history of ischemic heart disease and other diseases of the circulatory system; Z83.2 Family history of diseases of the blood and blood-forming organs and certain disorders involving the immune mechanism
CPT/HCPCS: 36415; 80053; 80061; 81241; 83735; 84443; 85025; 85598; 85610; 85613; 85730; 86146

== ENCOUNTER → 2022-03-14 15:47 | Outpatient (CLI) | payer BC, SELFPAY ==
[2022-03-14 18:23] LABS: COVID19 -Nasal RAPID Negative (Negative)
== END ==
PROVIDERS: PCP Family Medicine; Visit Provider Family Medicine
DX: Z20.822 Contact with and (suspected) exposure to COVID-19 (principal)
CPT/HCPCS: 87635

== ENCOUNTER → 2022-05-06 10:56 | Outpatient (CLI) | payer BC, SELFPAY ==
--- NOTE | 2022-05-06 10:57 | DI.CT.S_ITS ---
PROCEDURE: CT ANGIO CHEST INDICATIONS: CHEST PAIN TECHNIQUE: After the administration of intravenous contrast, 3 mm thick sections acquired from the pulmonary apices to the posterior costophrenic angles. 3-dimensional maximum intensity projection (MIP) coronal reformats were then acquired parallel to the pulmonary veins. For radiation dose reduction, the following was used: automated exposure control, adjustment of mA and/or kV according to patient size. COMPARISON: None. FINDINGS: Image quality: Excellent. Pulmonary veins: 4 pulmonary veins are identified. * Right superior pulmonary vein: 1.8 cm diameter, 0.8 cm from ostium to 1st order branch. * Right inferior pulmonary vein: 1.7 cm diameter, 0.2 cm from ostium to 1st order branch. * Left superior pulmonary vein: 1.2 cm diameter, 1.7 cm from ostium to 1st order branch. * Left inferior pulmonary vein: 1.3 cm diameter, 2.0 cm from ostium to 1st order branch. * Supernumerary pulmonary veins: none. Lungs and pleura: Lungs are clear. 4 mm pulmonary nodule, left lung, image 45/3. No pleural effusions or pneumothorax. Central and peripheral airways are patent. Mediastinum: There is four-chamber cardiomegaly, most notably involving the left atrium and right heart, and to a lesser extent the left ventricle. There is no pericardial effusion. No mediastinal or hilar adenopathy. Thoracic aorta and pulmonary arteries are normal in caliber and enhancement. Esophagus is normal in caliber, without hiatal hernia. Bones and chest wall: No suspicious bony lesions. Ribs and thoracic spine appear intact throughout. No axillary or supraclavicular adenopathy. Thyroid gland is unremarkable . Abdomen: Visualized upper abdominal solid organs appear normal in the early arterial phase of enhancement. IMPRESSION: 1. Four-chamber cardiomegaly. 2. There is normal pulmonary venous anatomy. That being said, the right middle lobe pulmonary vein enters the inferior right pulmonary vein at the entrance of the vein to the left atrium. 3. 4 mm incidental left lung pulmonary nodule. Please refer to the chart below for follow-up recommendations. Fleischner Society criteria for SOLID lung nodule followup. Nodule size (mm)Low-risk patientHigh-risk patient<6 (single or multiple)No routine followup.Optional CT at 12 months. 6-8 (single or multiple)CT at 6-12 months, then optional CT at 18-24 mo.CT at 6-12 months, then CT at 18-24 months. >8 (single)CT at 3 months, PET-CT, or biopsy. Same as for low-risk pts. >8 (multiple)CT at 3-6 months, then optional CT at 18-24 mo.CT at 3-6 months, then CT at 18-24 months. Fleischner Society criteria for SUB-SOLID lung nodule followup. Solitary pure ground-glass nodules<6 mm (ground glass or part solid)No followup needed. 6 mm or larger (ground glass)CT at 6-12 months to confirm persistence, then CT every 2 years until 5 years.6 mm or larger (part solid)CT at 3-6 months to confirm persistence, then annual CT until 5 years if unchanged and solid component remains <6 mm. Multiple sub-solid nodules<6 mmCT at 3-6 months, then CT consider at 2 & 4 years for high risk patients. [address] at 3-6 months. Subsequent management based on most suspicious lesions. Recommendations do not apply to lung cancer screening, patients with immunosuppression, or patients with known primary cancer. Dictated by: Williams Hickey M.D. on 05/06/2022 at 13:53 Approved by: Williams Hickey M.D. on 05/06/2022 at 14:44
== END ==
PROVIDERS: PCP Family Medicine; Referring Provider Physician Assistant Medical; Visit Provider Physician Assistant Medical
DX: R07.9 Chest pain, unspecified (principal); I51.7 Cardiomegaly; R91.1 Solitary pulmonary nodule
CPT/HCPCS: 71275; Q9967

== ENCOUNTER → 2022-05-06 10:58 | Outpatient (CLI) | payer BC, SELFPAY ==
--- NOTE | 2022-05-06 10:59 | DI.US.S_ITS ---
LIMITED ULTRASOUND OF RIGHT BREAST: 05/06/2022 CLINICAL: 6 month follow-up of cysts. Comparison is made to exams dated: 10/04/2021 ultrasound, 10/04/2021 mammogram, 09/03/2021 mammogram, 08/22/2020 mammogram, and 07/08/2019 mammogram - [facility]. Color flow ultrasound of the right breast 6 o'clock region was performed. Lopez scale images of the real-time examination were reviewed. There is a 0.4 cm x 0.4 cm x 0.2 cm oval cyst with a septated internal wall in the right breast at 6 o'clock in the retroareolar region. This oval cyst is hypoechoic. This abnormality is less prominent. Color flow imaging demonstrates that there is no vascularity present. IMPRESSION: PROBABLY BENIGN The 0.4 cm x 0.4 cm x 0.2 cm oval cyst in the right breast is probably benign. There is no abnormality seen in the right breast to correspond with the mammography finding which likely represents normal fibroglandular tissue. A follow-up mammogram and an ultrasound in 6 months is recommended to demonstrate stability. This exam was interpreted at Station ID: [id number]. Electronically Signed By: Usman underwood/loy:05/06/2022 14:40:51 letter sent: Followup Recommended Ultrasound BI-RADS: 3 Probably benign
== END ==
PROVIDERS: PCP Family Medicine; Referring Provider Family Medicine; Visit Provider Family Medicine
DX: R92.8 Other abnormal and inconclusive findings on diagnostic imaging of breast (principal); N60.01 Solitary cyst of right breast; R07.9 Chest pain, unspecified; I51.7 Cardiomegaly; R91.1 Solitary pulmonary nodule
CPT/HCPCS: 71275; 76642; Q9967

== ENCOUNTER → 2022-07-08 11:58 | Outpatient (CLI) | payer BC, SELFPAY ==
[2022-07-08 13:12] LABS: COVID19 -Nasal RAPID Negative (Negative)
== END ==
PROVIDERS: PCP Family Medicine; Referring Provider Internal Medicine; Visit Provider Internal Medicine
DX: Z20.822 Contact with and (suspected) exposure to COVID-19 (principal)
CPT/HCPCS: 87635; C9803

== ENCOUNTER → 2022-07-08 11:59 | Outpatient (CLI) | payer BC, SELFPAY ==
--- NOTE | 2022-07-13 09:12 | PM.PFT.1 ---
Pulmonary Function Test Referral & Results Date Patient Seen: 07/08/22 Requesting provider: Emerson Jasmine Results: The spirometry demonstrates an FVC of 2.49 L which is 83% of predicted. The FEV1 was measured at 1.71 L which is 74% of predicted. The FEV1/FVC ratio was 69 which is 88% of predicted. Following the administration of bronchodilator there was a 12% improvement in FEF 25-75%. Lung volumes show an SVC of 2.3 L which is 84% of predicted. The diffusing capacity was measured at 20.71 which is 96% of predicted. The maximum voluntary ventilation was minimally reduced Interpretation: This study demonstrates mild obstructive lung disease based on reduction FEV1 although FEV1/FVC ratio is relatively preserved shape a flow volume loop does support the presence of obstructive lung disease. There is evidence of very minimal benefit in small airway flow post bronchodilator as above based on improvement in FEF 25-75% There may also be very mild restrictive lung disease based on minimal reduction SVC Diffusing capacity is normal Clinical correlation suggested
== END ==
PROVIDERS: PCP Family Medicine; Referring Provider Internal Medicine Cardiovascular Disease; Visit Provider Internal Medicine Cardiovascular Disease
DX: R06.02 Shortness of breath (principal); Z79.899 Other long term (current) drug therapy; J98.8 Other specified respiratory disorders; Z20.822 Contact with and (suspected) exposure to COVID-19
CPT/HCPCS: 87635; 94060; 94726; 94729; C9803

== ENCOUNTER → 2022-11-25 09:13 | Outpatient (CLI) | payer BC, SELFPAY ==
[2022-11-25 10:12] LABS: Alanine Aminotransferase 26 IU/L (<35); Albumin 4.1 g/dL (3.5-5.0); Albumin Globulin Ratio 1.6 (1.0-2.8); Alkaline Phosphatase 58 U/L (38-126); Aspartate Aminotransferase 23 IU/L (14-36); BUN Creatinine Ratio 20.9 (6-22); Bilirubin Total 0.6 mg/dL (0.2-1.3); Blood Urea Nitrogen 19 mg/dL (7-17); Carbon Dioxide 25 mmol/L (22-32); Chloride 105 mmol/L (98-107); Estimated Glomerular Filt Rate > 60 mL/min (>60); Globulin 2.5 g/dL (1.7-4.1); Glucose 72 mg/dL (80-110); HEMOLYSIS < 15 (0-50); Magnesium 2.2 mg/dL (1.6-2.3); Potassium 4.4 mmol/L (3.4-5.1); Sodium 137 mmol/L (137-145); Total Protein 6.6 g/dL (6.3-8.2)
== END ==
PROVIDERS: PCP Family Medicine; Referring Provider Internal Medicine Cardiovascular Disease; Visit Provider Internal Medicine Cardiovascular Disease
DX: I49.3 Ventricular premature depolarization (principal); I34.0 Nonrheumatic mitral (valve) insufficiency; Z98.890 Other specified postprocedural states; Z86.79 Personal history of other diseases of the circulatory system; I49.8 Other specified cardiac arrhythmias
CPT/HCPCS: 36415; 80053; 83735

== ENCOUNTER → 2023-01-11 16:32 | Outpatient (CLI) | payer BC, SELFPAY ==
[2023-01-11 19:23] LABS: Appearance Urine UA CLEAR; Bilirubin Urine UA NEGATIVE (NEGATIVE); Color Urine UA YELLOW; Glucose Urine UA NEGATIVE (Negative); Ketones Urine UA NEGATIVE (NEGATIVE); Leukocyte Esterase Urine UA NEGATIVE (NEGATIVE); Nitrite Urine UA NEGATIVE (Negative); Occult Blood Urine UA NEGATIVE (Negative); Protein Urine UA TRACE (Negative); Specific Gravity Urine UA 1.015 (1.000-1.035); Urobilinogen Urine UA 0.2 E.U./dL (0.2)
[2023-01-11 19:41] LABS: Bacteria Urine Occasional (0-1); Culture Indicated Urine Cult Not Indicated; RBC Urine 0-1/HPF (0-5/HPF); Squamous Epithelial Cell Urine 1-5 /HPF (0-5/HPF); WBC Urine 1-5/HPF (0-5/HPF)
== END ==
PROVIDERS: PCP Family Medicine; Referring Provider Family Medicine; Visit Provider Family Medicine
DX: R35.0 Frequency of micturition (principal)
CPT/HCPCS: 81001

== ENCOUNTER → 2023-04-07 08:51 | Outpatient (CLI) | payer BC, SELFPAY ==
--- NOTE | 2023-04-07 08:52 | DI.US.S_ITS ---
ULTRASOUND OF RIGHT BREAST: 04/07/2023 CLINICAL: 6 month follow-up of cysts. Comparison is made to exams dated: 04/07/2023 mammogram, 05/06/2022 ultrasound, 10/04/2021 ultrasound, 10/04/2021 mammogram, 08/22/2020 mammogram, and 09/03/2021 mammogram - [facility]. Color flow and real-time ultrasound of the right breast were performed. Lopez scale images of the real-time examination were reviewed. No significant abnormalities were seen sonographically in the right breast. IMPRESSION: INCOMPLETE: NEEDS ADDITIONAL IMAGING EVALUATION There is no sonographic evidence of malignancy. There is no abnormality seen in the right breast to correspond with the mammography finding. There is no abnormality seen in the right breast to correspond with the previously described complicated cyst. Return to screening mammography for the right breast. Patient will be rescheduled for evaluation of new left breast oval asymmetry seen on today's earlier mammographic evaluation. Findings and recommendations were conveyed to the patient during today's evaluation. This exam was interpreted at Station ID: [id number]. Electronically Signed By: Maciej Hutton M.D. aty/:04/12/2023 10:31:28 letter sent: Need Ultrasound Ultrasound BI-RADS: 0 Indeterminate
--- NOTE | 2023-04-07 08:52 | DI.MG.S_ITS ---
BILATERAL DIGITAL DIAGNOSTIC MAMMOGRAM 3D/2D: 04/07/2023 CLINICAL: Late 6 month follow up of the right breast, due for bilateral imaging. Comparison is made to exams dated: 10/04/2021 mammogram, 09/03/2021 mammogram, 08/22/2020 mammogram, and 07/08/2019 mammogram - [facility]. Both breasts are heterogeneously dense, which may obscure small masses (category c / 51-75% glandular tissue). Redemonstration of previously described irregular equal density focal asymmetry with an indistinct margin in the right breast at 5 o'clock middle depth. This is less prominent and decreased in size and was not seen on the prior ultrasound. There is a new 1 cm oval equal density focal asymmetry in the left breast posterior depth superior region seen on the mediolateral oblique view only. No other significant masses or calcifications are seen in either breast. IMPRESSION: INCOMPLETE: NEEDS ADDITIONAL IMAGING EVALUATION The irregular equal density focal asymmetry in the right breast at 5 o'clock middle depth most likely is fibroglandular tissue and is indeterminate. An right ultrasound is recommended for further evaluation and is scheduled to immediately follow this examination. The new 1 cm oval equal density focal asymmetry in the left breast posterior depth superior region seen on the mediolateral oblique view only localizes to the upper midline breast near 12 oclock to slightly the lateral aspect on tomosynthesis. It resembles a cyst or a lymph node and is indeterminate. An ultrasound is recommended but will need to be scheduled at a later date. Based on the Tyrer Cuzick model (a risk assessment model) the patient's lifetime risk is 13.1% and her 10 year risk is 5.9%. According to the ACR, ACS, and NCCN guidelines, an annual breast MRI exam along with mammogram is recommended if the patient's lifetime risk is 20% or greater. This exam was interpreted at Station ID: [id number]. NOTE: For mammograms, a report in lay terms will be sent to the patient. Approximately 15% of breast malignancies will not be visualized mammographically. In the management of a palpable breast mass, a negative mammogram must not discourage biopsy of a clinically suspicious lesion. Electronically Signed By: Maciej Hutton M.D. aty/:04/12/2023 10:30:39 ACR BI-RADS Category 0: Incomplete 3340F
== END ==
PROVIDERS: PCP Family Medicine; Referring Provider Family Medicine; Visit Provider Family Medicine
DX: R92.8 Other abnormal and inconclusive findings on diagnostic imaging of breast; N64.89 Other specified disorders of breast
CPT/HCPCS: 76642; 77066; G0279

== ENCOUNTER 2023-04-20 12:30 | Outpatient (RCR) | payer BC, SELFPAY | END 2023-04-20 14:30 | LOC: CAR 12:30 | PROVIDERS: PCP Family Medicine; Referring Provider Thoracic Surgery (Cardiothoracic Vascular Surgery); Visit Provider Thoracic Surgery (Cardiothoracic Vascular Surgery) | DX: Z98.890 Other specified postprocedural states (principal); I34.0 Nonrheumatic mitral (valve) insufficiency; I34.1 Nonrheumatic mitral (valve) prolapse | CPT/HCPCS: 93798 ==

== ENCOUNTER → 2023-04-21 09:27 | Outpatient (CLI) | payer OTHER, SELFPAY ==
--- NOTE | 2023-04-21 09:27 | DI.US.S_ITS ---
ULTRASOUND OF LEFT BREAST: 04/21/2023 CLINICAL: Patient returns today to evaluate a focal asymmetry in the left breast. Comparison is made to exams dated: 04/07/2023 mammogram, 09/03/2021 mammogram, and 08/22/2020 mammogram - [facility]. Real-time ultrasound of the left breast was performed. Lopez scale images of the real-time examination were reviewed. There is a possible 1.1 cm x 0.6 cm x 0.9 cm complicated cyst in the left breast at 12 o'clock posterior depth 6 cm from the nipple. This correlates with mammography findings. IMPRESSION: PROBABLY BENIGN The possible 1.1 cm x 0.6 cm x 0.9 cm complicated cyst in the left breast is probably benign. A follow-up mammogram and an ultrasound in 6 months is recommended to demonstrate stability. This exam was interpreted at Station ID: [id number]. Electronically Signed By: Roland Parson M.D. lc/:04/21/2023 10:08:04 letter sent: Followup Recommended Ultrasound BI-RADS: 3 Probably benign
== END ==
PROVIDERS: PCP Family Medicine; Referring Provider Family Medicine; Visit Provider Family Medicine
DX: R92.8 Other abnormal and inconclusive findings on diagnostic imaging of breast (principal)
CPT/HCPCS: 76642

== ENCOUNTER → 2023-11-17 11:21 | Outpatient (CLI) | payer OTHER, SELFPAY ==
--- NOTE | 2023-11-17 11:23 | DI.US.S_ITS ---
LIMITED ULTRASOUND OF LEFT BREAST: 11/17/2023 CLINICAL: 6 month follow-up of cyst. Comparison is made to exams dated: 11/17/2023 mammogram, 04/21/2023 ultrasound, 04/07/2023 mammogram, 09/03/2021 mammogram, and 08/22/2020 mammogram - [facility]. Real-time ultrasound of the left breast 12 o'clock region was performed. Lopez scale images of the real-time examination were reviewed. The possible a complicated cyst in the left breast at 12 o'clock posterior depth is no longer seen. This correlates with mammography findings. No significant abnormalities were seen sonographically in the left breast. IMPRESSION: NEGATIVE There is no sonographic evidence of malignancy. Return to annual mammogram screening schedule is recommended. This exam was interpreted at Station ID: [id number]. Electronically Signed By: Usman Fowler M.D. ar/:11/17/2023 16:22:12 letter sent: Normal Exam Ultrasound BI-RADS: 1 Negative
--- NOTE | 2023-11-17 11:23 | DI.MG.S_ITS ---
UNILATERAL LEFT DIGITAL DIAGNOSTIC MAMMOGRAM 3D/2D: 11/17/2023 CLINICAL: Short term follow up left. Comparison is made to exams dated: 04/21/2023 ultrasound, 04/07/2023 mammogram, 09/03/2021 mammogram, and 08/22/2020 mammogram - [facility]. The left breast is heterogeneously dense, which may obscure small masses (category c / 51-75% glandular tissue). The oval equal density focal asymmetry in the left breast posterior depth superior region seen on the mediolateral oblique view only is no longer seen. No other significant masses or calcifications are seen in the breast. IMPRESSION: INCOMPLETE: NEEDS ADDITIONAL IMAGING EVALUATION An ultrasound is recommended to confirm the no longer seen oval equal density focal asymmetry in the left breast posterior depth superior region seen on the mediolateral oblique view only. Based on the Tyrer Cuzick model (a risk assessment model) the patient's lifetime risk is 13.1% and her 10 year risk is 5.9%. According to the ACR, ACS, and NCCN guidelines, an annual breast MRI exam along with mammogram is recommended if the patient's lifetime risk is 20% or greater. This exam was interpreted at Station ID: [id number]. NOTE: For mammograms, a report in lay terms will be sent to the patient. Approximately 15% of breast malignancies will not be visualized mammographically. In the management of a palpable breast mass, a negative mammogram must not discourage biopsy of a clinically suspicious lesion. Electronically Signed By: Usman underwood/loy:11/17/2023 16:18:53 ACR BI-RADS Category 0: Incomplete 3340F
--- NOTE | 2023-11-17 11:23 | DI.CT.S_ITS ---
PROCEDURE: CT CHEST WO CON INDICATIONS: fu 6mm MAURO pulmonary nodule noted on PET imaging 04/2023 TECHNIQUE: Noncontrast 2.0-2.5 mm thick sections acquired from the pulmonary apices to the posterior costophrenic angles. 7 mm thick axial MIP and 5 mm coronal and sagittal reformats were then acquired. For radiation dose reduction, the following was used: automated exposure control, adjustment of mA and/or kV according to patient size. COMPARISON: Outside Facility, RG, CT PET, 05/24/2023, 12:16. FINDINGS: Image quality: Diagnostic. Lower Neck: No enlarged lymph nodes. Thyroid: No thyroid nodules which require sonographic follow up, per consensus guidelines. Axillae: No enlarged lymph nodes. Chest Wall: Unremarkable. Bones: Unremarkable. Lungs and Pleura: The 6 mm pulmonary nodule in the left upper lobe visualized on the comparison CT dated May 24, 2023 has resolved. No new suspicious pulmonary nodules which require follow-up. No acute airspace opacities. No pleural effusion or pneumothorax. Heart: Heart size is normal. No pericardial effusion. Mechanical mitral valve is noted. Thoracic Vessels: The aorta and pulmonary arteries demonstrate normal size. Mediastinum and Yanely: No enlarged lymph nodes. Multiple calcified mediastinal and hilar nodes are present suggesting prior granulomatous disease. Esophagus: No wall thickening. No hiatal hernia. Upper Abdomen: Visualized upper abdomen solid organs and bowel loops appear normal. IMPRESSION: 1. Resolution of the 6 mm left upper lobe pulmonary nodule seen on the comparison PET-CT dated May 24, 2023. 2. No suspicious pulmonary nodules or mass lesions which require follow-up. Fleischner Society criteria for SOLID lung nodule followup. Nodule size (mm)Low-risk patientHigh-risk patient<6 (single or multiple)No routine followup.Optional CT at 12 months. 6-8 (single or multiple)CT at 6-12 months, then optional CT at 18-24 mo.CT at 6-12 months, then CT at 18-24 months. >8 (single)CT at 3 months, PET-CT, or biopsy. Same as for low-risk pts. >8 (multiple)CT at 3-6 months, then optional CT at 18-24 mo.CT at 3-6 months, then CT at 18-24 months. Fleischner Society criteria for SUB-SOLID lung nodule followup. Solitary pure ground-glass nodules<6 mm (ground glass or part solid)No followup needed. 6 mm or larger (ground glass)CT at 6-12 months to confirm persistence, then CT every 2 years until 5 years.6 mm or larger (part solid)CT at 3-6 months to confirm persistence, then annual CT until 5 years if unchanged and solid component remains <6 mm. Multiple sub-solid nodules<6 mmCT at 3-6 months, then CT consider at 2 & 4 years for high risk patients. [address] at 3-6 months. Subsequent management based on most suspicious lesions. Recommendations do not apply to lung cancer screening, patients with immunosuppression, or patients with known primary cancer. Dictated by: Vicky Paula M.D. on 11/17/2023 at 13:09 Approved by: Vicky Paula M.D. on 11/17/2023 at 13:14
== END ==
PROVIDERS: PCP Family Medicine; Referring Provider Family Medicine; Visit Provider Family Medicine
DX: R92.8 Other abnormal and inconclusive findings on diagnostic imaging of breast (principal); R92.332 Mammographic heterogeneous density, left breast; R91.1 Solitary pulmonary nodule; Z95.2 Presence of prosthetic heart valve
CPT/HCPCS: 71250; 76642; 77065; G0279

== ENCOUNTER → 2024-01-03 08:54 | Outpatient (CLI) | payer OTHER, SELFPAY ==
[2024-01-03 10:59] LABS: BUN Creatinine Ratio 30.2 (6-22); Blood Urea Nitrogen 29 mg/dL (7-17); Calcium 9.3 mg/dL (8.4-10.2); Carbon Dioxide 27 mmol/L (22-32); Chloride 107 mmol/L (98-107); Estimated Glomerular Filt Rate > 60 mL/min (>60); Glucose 94 mg/dL (80-110); HEMOLYSIS < 15 (0-50); Magnesium 2.2 mg/dL (1.6-2.3); Potassium 4.9 mmol/L (3.4-5.1); Sodium 138 mmol/L (137-145)
[2024-01-03 11:22] LABS: Thyroid Stimulating Hormone 2.74 uIU/mL (0.47-4.68)
== END ==
PROVIDERS: PCP Family Medicine; Referring Provider Internal Medicine Cardiovascular Disease; Visit Provider Internal Medicine Cardiovascular Disease
DX: Z98.890 Other specified postprocedural states (principal); Z86.79 Personal history of other diseases of the circulatory system; I50.32 Chronic diastolic (congestive) heart failure; R94.31 Abnormal electrocardiogram [ECG] [EKG]
CPT/HCPCS: 36415; 80048; 83735; 84443

== ENCOUNTER → 2024-04-15 15:25 | Outpatient (CLI) | payer OTHER, SELFPAY ==
--- NOTE | 2024-04-15 15:26 | DI.MG.S_ITS ---
BILATERAL DIGITAL SCREENING MAMMOGRAM 3D/2D WITH CAD: 04/15/2024 CLINICAL: Routine screening. Comparison is made to exams dated: 04/07/2023 mammogram, 09/03/2021 mammogram, 08/22/2020 mammogram, 11/17/2023 mammogram, and 10/04/2021 mammogram - [facility]. The breasts are heterogeneously dense, which may obscure small masses (category c / 51-75% glandular tissue). Current study was also evaluated with a Computer Aided Detection (CAD) system. No significant masses, calcifications, or other findings are seen in either breast. There has been no significant interval change. IMPRESSION: NEGATIVE There is no mammographic evidence of malignancy. A 1 year screening mammogram is recommended. Based on the Tyrer Cuzick model (a risk assessment model) the patient's lifetime risk is 12.7% and her 10 year risk is 5.9%. According to the ACR, ACS, and NCCN guidelines, an annual breast MRI exam along with mammogram is recommended if the patient's lifetime risk is 20% or greater. This exam was interpreted at Station ID: [id number]. NOTE: For mammograms, a report in lay terms will be sent to the patient. Approximately 15% of breast malignancies will not be visualized mammographically. In the management of a palpable breast mass, a negative mammogram must not discourage biopsy of a clinically suspicious lesion. Electronically Signed By: Usman underwood/loy:04/16/2024 11:11:47 letter sent: Normal Exam ACR BI-RADS Category 1: Negative 3341F
== END ==
LOC: MAMMO 15:26
PROVIDERS: PCP Family Medicine; Referring Provider Family Medicine; Visit Provider Family Medicine
DX: Z12.31 Encounter for screening mammogram for malignant neoplasm of breast (principal); R92.333 Mammographic heterogeneous density, bilateral breasts
CPT/HCPCS: 77063; 77067

== ENCOUNTER → 2024-07-15 14:35 | Outpatient (CLI) | payer OTHER, SELFPAY ==
[2024-07-15 15:48] LABS: BUN Creatinine Ratio 25.3 (6-22); Blood Urea Nitrogen 21 mg/dL (7-17); Calcium 9.4 mg/dL (8.4-10.2); Carbon Dioxide 26 mmol/L (22-32); Chloride 105 mmol/L (98-107); Estimated Glomerular Filt Rate > 60 mL/min (>60); Glucose 141 mg/dL (80-110); HEMOLYSIS < 15 (0-50); Sodium 138 mmol/L (137-145)
== END ==
LOC: LAB 14:37
PROVIDERS: PCP Family Medicine; Referring Provider Internal Medicine Cardiovascular Disease; Visit Provider Internal Medicine Cardiovascular Disease
DX: R94.31 Abnormal electrocardiogram [ECG] [EKG] (principal)
CPT/HCPCS: 36415; 80048

== ENCOUNTER → 2024-07-22 14:53 | Outpatient (CLI) | payer OTHER, SELFPAY ==
--- NOTE | 2024-07-22 14:55 | DI.RAD.S_ITS ---
PROCEDURE: XR DEXA AXIAL SKELETON INDICATIONS: Osteopenia FU COMPARISON: [facility], CR, XR DEXA AXIAL SKELETON, 11/19/2021, 10:08. [facility], CR, XR DEXA AXIAL SKELETON, 07/05/2019, 14:51. FINDINGS: Lumbar Spine: Bone mineral density 0.839 g/cm2, T score -1.9. Since the most recent prior study, there has been no statistically significant change in bone mineral density. Left Hip: Bone mineral density 0.647 g/cm2, T score -2.4. Since the most recent prior study, there has been no statistically significant change in bone mineral density. Left Femoral Neck: Bone mineral density 0.499 g/cm2, T score -3.2. Right Hip: Bone mineral density 0.595 g/cm2, T score -2.8. Since the most recent prior study, there has been no statistically significant change in bone mineral density. Right Femoral Neck: Bone mineral density 0.533 g/cm2, T score -2.8. Fracture Risk Calculation (when applicable): FRAX score not reported due to T-score less than -2.5. (T score greater or equal to -1.0 to: NORMAL) (T score from -1.1 to -2.4: OSTEOPENIA) (T score less than or equal to -2.5: OSTEOPOROSIS) IMPRESSION: 1. By WHO criteria, patient has osteoporosis. 2. No statistically significant change in bone mineral density when compared to the prior exam. Follow-up guidelines as follows: Osteoporosis: Consider a repeat DEXA and Vertebral Fracture Assessment (VFA) exam in 2 years or sooner if medically necessary, to reassess this patient's status. Osteopenia: Consider a repeat DEXA in 2-3 years to reassess this patient's status, or if there is a new clinical indication. Normal: Consider a repeat DEXA in 5 years or sooner, or if there is a new clinical indication. All treatment decisions require clinical judgment and consideration of individual patient factors, including patient preferences, comorbidities, previous drug use, risk factors not captured in the FRAX model (e.g., frailty, falls, vitamin D deficiency, increased bone turnover, interval significant decline in bone density ) and possible under- or over-estimation of fracture risk by FRAX. In addition, the NOF Guide recommends that FDA-approved medical therapies be considered in postmenopausal women and men age >= 50 years with a: * Hip or vertebral (clinical or morphometric) fracture * T-score of <=-2.5 at the spine or hip * Ten-year fracture probability by FRAX of >= 3% for hip fracture or >=20% for major osteoporotic fracture. People with diagnosed cases of osteoporosis or at high risk for fracture should have regular bone mineral density tests. For patients eligible for Medicare, routine testing is allowed once every 2 years. The testing frequency can be increased to one year for patients who have rapidly progressing disease, those who are receiving or discontinuing medical therapy to restore bone mass, or have additional risk factors. Approved by: Usman Fowler M.D. on 07/22/2024 at 17:44
== END ==
LOC: RAD 14:54
PROVIDERS: PCP Family Medicine; Referring Provider Family Medicine; Visit Provider Family Medicine
DX: M81.0 Age-related osteoporosis without current pathological fracture (principal); Z78.0 Asymptomatic menopausal state
CPT/HCPCS: 77080

== ENCOUNTER → 2024-10-14 15:38 | Outpatient (CLI) | payer OTHER, SELFPAY ==
--- NOTE | 2024-10-14 15:39 | DI.RAD.S_ITS ---
PROCEDURE: XR HAND RT MIN 3V INDICATIONS: rt thumb oa TECHNIQUE: 3 views of the hand(s) acquired. COMPARISON: None. FINDINGS: Bones: Small remote avulsion fracture of the radial aspect of the trapezium noted Joints: Moderate STT and severe 1st CMC degenerative change noted. There is mild degenerative change in all of the MCP and interphalangeal joints with mild synovial swelling 2nd and 3rd MCP joint. Soft tissues: No soft tissue abnormality. IMPRESSION: Degeneration Dictated by: Kehinde Chao M.D. on 10/15/2024 at 11:51 Approved by: Kehinde Chao M.D. on 10/15/2024 at 11:53
== END ==
LOC: RAD 15:38
PROVIDERS: PCP Family Medicine; Referring Provider Family Medicine; Visit Provider Family Medicine
DX: M18.11 Unilateral primary osteoarthritis of first carpometacarpal joint, right hand (principal); S62.171 Displaced fracture of trapezium [larger multangular], right wrist
CPT/HCPCS: 73130

== ENCOUNTER → 2024-12-03 12:54 | Outpatient (CLI) | payer OTHER, SELFPAY ==
[2024-12-03 14:29] LABS: Blood Urea Nitrogen 25 mg/dL (7-17); Calcium 9.6 mg/dL (8.4-10.2); Carbon Dioxide 25 mmol/L (22-32); Chloride 105 mmol/L (98-107); Estimated Glomerular Filt Rate > 60 mL/min (>60); Glucose 91 mg/dL (70-99); HEMOLYSIS < 15 (0-50); Magnesium 1.8 mg/dL (1.6-2.3); Potassium 3.9 mmol/L (3.4-5.1); Sodium 140 mmol/L (137-145)
== END ==
LOC: LAB 13:01
PROVIDERS: PCP Family Medicine; Referring Provider Internal Medicine Cardiovascular Disease; Visit Provider Internal Medicine Cardiovascular Disease
DX: Z95.0 Presence of cardiac pacemaker (principal)
CPT/HCPCS: 36415; 80048; 83735

== ENCOUNTER → 2025-04-09 14:37 | Outpatient (CLI) | payer MEDICARE, OTHER, SELFPAY ==
[2025-04-09 15:29] LABS: Magnesium 2.1 mg/dL (1.6-2.3)
== END ==
PROVIDERS: PCP Family Medicine; Referring Provider Family Medicine; Visit Provider Internal Medicine Cardiovascular Disease
DX: I48.0 Paroxysmal atrial fibrillation (principal); I34.0 Nonrheumatic mitral (valve) insufficiency; I50.32 Chronic diastolic (congestive) heart failure; Z79.899 Other long term (current) drug therapy; Z86.79 Personal history of other diseases of the circulatory system; Z98.890 Other specified postprocedural states
CPT/HCPCS: 36415; 83735

== ENCOUNTER → 2025-05-23 16:52 | Outpatient (CLI) | payer MEDICARE, OTHER, SELFPAY ==
--- NOTE | 2025-05-23 16:53 | DI.MG.S_ITS ---
MM screening mammo BI: 05/23/2025. BI-RADS: 0 CLINICAL: 64-year old female for bilateral screening mammogram. Tyrer-Cuzick lifetime risk of 8.1%. No personal or first-degree family history of breast cancer. PRIOR EXAMS 04/15/2024, 11/17/2023, 04/21/2023, 04/07/2023. MAMMOGRAPHY TECHNIQUE: 2D and 3D (tomosynthesis) digital mammographic views obtained, with additional images as needed for full coverage. Current study was also evaluated with a Computer Aided Detection (CAD) system. DENSITY C. The breasts are heterogeneously dense, which may obscure small masses. MAMMOGRAPHY FINDINGS Right: No suspicious mass, asymmetry, microcalcification, or other abnormality seen. Left: Central at 9:30, Middle depth: Focal asymmetry needing additional imaging evaluation. IMPRESSION: Right * No evidence of malignancy. Left (Asymmetry): Central at 9:30, Middle depth * Incomplete - focal asymmetry needing additional imaging evaluation. RECOMMENDATIONS Left: Central at 9:30, Middle depth * Further evaluation with diagnostic mammography and diagnostic ultrasound. Ultrasound to be performed only if needed. OVERALL ASSESSMENT CATEGORY BI-RADS-0: Incomplete - Need Additional Imaging Evaluation. ELECTRONICALLY SIGNED: Maciej Hutton M.D. on 05/23/2025 at 09:03:07 PM PT Interpreting Station ID: [id number]
== END ==
PROVIDERS: PCP Family Medicine; Referring Provider Family Medicine; Visit Provider Family Medicine
DX: Z12.31 Encounter for screening mammogram for malignant neoplasm of breast (principal); R92.333 Mammographic heterogeneous density, bilateral breasts
CPT/HCPCS: 77063; 77067

== ENCOUNTER → 2025-06-18 09:33 | Outpatient (CLI) | payer MEDICARE, OTHER, SELFPAY ==
--- NOTE | 2025-06-18 09:35 | DI.US.S_ITS ---
US breast LT limited, MM diagnostic mammo unilat LT: 06/18/2025 BI-RADS: 2 CLINICAL: 64-year old female for left diagnostic mammogram and left diagnostic breast ultrasound that is a recall from screening on 05/23/2025. Tyrer-Cuzick lifetime risk of 8.1%. No personal or first-degree family history of breast cancer. PRIOR EXAMS Mammogram(s): 05/23/2025, 05/05/2024, 05/05/2023, 05/05/2022, 05/05/2021, 05/05/2019, 05/05/2018, 05/05/2017, 11/17/2023, 04/21/2016. MAMMOGRAPHY TECHNIQUE: 2D and 3D (tomosynthesis) digital mammographic views obtained, with additional images as needed for full coverage. Current study was also evaluated with a Computer Aided Detection (CAD) system. ULTRASOUND TECHNIQUE: Real-time nova scale and color doppler imaging of the area of clinical interest was performed with image documentation. TARGETED Left Breast Ultrasound: Real-time ultrasound exam was performed focused to area of clinical and/or imaging concern. DENSITY Left: C. The breast is heterogeneously dense, which may obscure small masses. MAMMOGRAPHY FINDINGS Left (finding-1): Lower Central, Middle depth, measuring 0.9cm. Previous report: Central at 9:30: Correlating with findings on screening mammogram there is a circumscribed, oval, equal-density mass present. ULTRASOUND FINDINGS Left (finding-1): Lower Outer at 5:00, 2 cm from nipple, measuring 1 x 0.5 x 0.7 cm: Correlating with findings on mammogram, there is a simple anechoic cyst showing posterior acoustic enhancement. IMPRESSION: Left * No evidence of malignancy with benign findings. RECOMMENDATIONS Bilateral * Annual screening mammography. COMMENTS: Findings and recommendations were conveyed to the patient during today's evaluation. OVERALL ASSESSMENT CATEGORY BI-RADS-2: Benign. The [employer] recommends annual screening mammography beginning at age 40 for women with average risk of breast cancer. ELECTRONICALLY SIGNED: Yesika Seth M.D. on 06/18/2025 at 10:45:53 AM PT Interpreting Station ID: [id number]
--- OUTSIDE RECORDS SUMMARY | 2025-06-20 14:30 | XMS_ITS | Clinical Summary ---
Author Organization [facility] Address [address] [place] [id number] Phone [phone] Care Team Providers Care Biopsychologist Name Role Phone Unavailable Primary Care Provider Unavailabl e Social History Tobacco Use Types Packs/Day Years Used Date Smoking Tobacco: Never Assessed Comments Unknown Sex and Gender Information Value Date Recorded Sex Assigned at Not on file Legal Sex Female 9:16 AM PDT Gender Identity Not on file Sexual Orientation Not on file Last Filed Vital Signs Vital Sign Reading Time Taken Comments Blood Pressure 101/66 11/29/2019 3:47 PM PDT Pulse 89 11/29/2019 3:47 PM PDT Temperature - - Respiratory Rate - - Oxygen Saturation - - Inhaled Oxygen Concentration - - Weight 53.7 kg (118 lb 6.4 oz) 11/29/2019 3:47 P M PDT Height - - Body Mass Index - - Plan of Treatment Health Maintenance Due Date Last Done Comments Bone Density Scan 1959 CT Colonography 1959 Colonoscopy 1959 Colorectal Cancer Screening 1959 FIT-DNA 1959 FIT 1959 Medicare Initial Physical (IPPE) 1959 Sigmoidoscopy 1959 Hepatitis C Screening 12/10/1977 Pneumococcal Vaccine: 50+ Years (1 of 2 - PCV) 12/10/1978 Mammogram 1999 RSV Vaccination aged 60+ and Patients (1 - Risk 50-74 years 1-dose series) 12/10/2009 Zoster Vaccines (2 of 3) 10/21/2013 08/26/2013 COVID-19 Vaccine (6 - season) 2025 05/07/2023, 05/06/2022, 05/28/2021, Additional history exists Influenza Vaccine (#1) 2025 2, 05/14/2021, 05/23/2020, Additional history exists DTaP/Tdap/Td Vaccines (3 - Td or Tdap) 07/22/2026 07/22/2016, 08/22/2011 HIB Vaccines Aged Out No longer eligi ble based on patient's age to complete this topic HPV Vaccines (No Doses Required) Completed Hepatitis A Vaccines Aged Out No long er eligible based on patient's age to complete this topic IPV Vaccines Aged Out No longer eligi ble based on patient's age to complete this topic Meningococcal Vaccine Aged Out No [place] eligible based on patient's age to complete this topic Rotavirus Vaccines Aged Out No longer eligible based on patient's age to complete this topic
== END ==
LOC: MAMMO 09:34
PROVIDERS: PCP Family Medicine; Referring Provider Family Medicine; Visit Provider Family Medicine
DX: R92.8 Other abnormal and inconclusive findings on diagnostic imaging of breast (principal); R92.332 Mammographic heterogeneous density, left breast; N60.02 Solitary cyst of left breast
CPT/HCPCS: 76642; 77065; G0279